=== PATIENT | male | born 1955 | race Caucasian/White ===

== ENCOUNTER 2020-02-12 18:11 | Inpatient (IN) | payer SELFPAY ==
--- NOTE | 2020-02-12 19:29 | RAD REPORT ---
EXAM DESCRIPTION: CT - Head Brain Wo Cont - 02/12/2020 7:15 pm CLINICAL HISTORY: Syncope COMPARISON: None TECHNIQUE: Computed axial tomography of the head was obtained. IV contrast was not requested. All CT scans are performed using dose optimization technique as appropriate and may include automated exposure control or mA/KV adjustment according to patient size. FINDINGS: An intracranial bleed is not seen . The ventricles are normal in caliber. No extra-axial fluid collection is noted. Mild low-density areas within periventricular, deep and subcortical white matter likely represent isc hemic changes secondary to small vessel disease. Fluid within the sinuses/ mastoids is not seen. IMPRESSION: No acute intracranial abnormality is seen. If patient's symptoms persist MRI of the bra in would be recommended.
[2020-02-12 19:44] LABS: Basophils % 0.5 % (0-1.3); Hematocrit 44.4 % (39.6-49.0); Lymphocytes % 5.7 % (15.3-44.8); MPV 7.3 fL (7.6-11.3); RBC Red Blood Cell Count 4.94 M/uL (4.33-5.43)
[2020-02-12 20:03] LABS: ALT/SGPT 22 U/L (12-78); AST/SGOT 15 U/L (15-37); Albumin 3.3 g/dL (3.4-5.0); Alkaline Phosphatase 108 U/L (45-117); BUN Blood Urea Nitrogen 28 mg/dL (7-18); Bicarbonate 32 mmol/L (21-32); Bilirubin Direct < 0.1 mg/dL (0-0.2); Bilirubin Total 0.3 mg/dL (0.2-1.0); Glucose Level 73 mg/dL (74-106); Magnesium 2.2 mg/dL (1.8-2.4); NT PRO-BNP 85 pg/mL (<125); Potassium 3.7 mmol/L (3.5-5.1); Protein, Total 6.6 g/dL (6.4-8.2); Sodium Level 142 mmol/L (136-145); Troponin (Emerg Dept Use Only) < 0.02 ng/mL (0.0-0.045)
[2020-02-12] MEDS ORDERED: NA CHLORIDE 0.9% 1,000 ML ONE ×2 (20:09→22:52)
[2020-02-12 20:10] LABS: Protime INR 1.01
[2020-02-12] MEDS ORDERED: LIDOCAINE 1% W/EPI 1:100,000 MDV 20 ML VIAL ONE (20:12)
[2020-02-12 20:56] LABS: Blood Morphology Comment NOT SEEN (NOT SEEN); Platelet Estimate ADEQ
--- NOTE | 2020-02-12 21:07 | RAD REPORT ---
EXAM DESCRIPTION: CT - Abdomen Pelvis W Contrast - 02/12/2020 8:44 pm CLINICAL HISTORY: Abdominal pain COMPARISON: none. TECHNIQUE: Computed axial tomography of the abdomen pelvis was obtained. 100 cc Isovue-300 was admin istered intravenously. Oral contrast was not requested which limits evaluation of bowel. All CT scans are performed using dose optimization technique as appropriate and may include automated exposure control or mA/KV adjustment according to patient size. FINDINGS: Evaluation is mildly limited secondary to the patient not suspending respiration during th e exam. The liver, spleen and pancreas appear unremarkable. 2.7 centimeter left and 2 centimeter right adrenal masses. Left renal calculi. The largest measures 7 millimeters. 1.9 centimeter left renal cyst. No evidence of diverticulitis. Moderate stool within the colon. The prostate gland is mildly enlarged . Small inguinal hernias. Small umbilical hernia contains fat IMPRESSION: Bilateral adrenal masses are nonspecific. Adenomas are considered most likely. Metastase s could also have this appearance. Further evaluation with MRI could be obtained Nonobstructing bilateral renal calculi
--- NOTE | 2020-02-12 22:37 | EDPHYS ---
Physician Documentation [facility] Name: Laz Al Age: 64 yrs Sex: Male : 1955 Arrival Date: 02/12/2020 Time: 18:14 Bed 16 Private MD: ED Physician Nehemias Persaud HPI: 02/11 22:46 This 64 yrs old Male presents to ER via EMS with complaints of Syncope. kb 22:46 The patient has experienced syncope, collapsed. Onset: The symptoms/episode kb began/occurred just prior to arrival. Duration: This was a single episode. Context: the episode(s) was witnessed, by no one, occurred at home, occurred while the patient was standing up from toilet. Just prior to the episode the patient experienced no apparent symptoms. Associated injury: Head/face: laceration, 3 cm(s), Right lower extremity: right knee, pain, tenderness. Associated signs and symptoms: The patient has no apparent associated signs or symptoms. Current symptoms: Currently, the patient is not experiencing any symptoms. The patient has not experienced similar symptoms in the past. The patient has not recently seen a physician. Pt reports he stood up from toilet and must have slipped in some water on the floor because he fell and cut his head. reports she went in after hearing him fall and he was trying to get up. Both deny LOC, but pt cannot recall entire event. reports that is normal for him because he has cognitive problems. Pt denies shortness of breath, cough, chest pain, dizziness, fever, headache or any other symptoms.. Historical: - Allergies: 18:17 No Known Allergies; bp - Home Meds: 18:17 tamsulosin 0.4 mg oral cp24 2 caps once daily [Active]; losartan 50 mg oral tab 1 tab bp once daily [Active]; lovastatin 20 mg Oral tab 1 tab once daily [Active]; temazepam 15 mg Oral cap 1 cap once daily [Active]; - PMHx: 18:17 Hypertension; High Cholesterol; bp - Immunization history:: Adult Immunizations up to date. - Social history:: Smoking status: Patient denies any tobacco usage or history of. ROS: 22:17 Constitutional: Negative for fever, chills, and weight loss, Cardiovascular: Negative kb for chest pain, palpitations, and edema, Respiratory: Negative for shortness of breath, cough, wheezing, and pleuritic chest pain, Abdomen/GI: Negative for abdominal pain, nausea, vomiting, diarrhea, and constipation, Back: Negative for injury and pain, Neuro: Negative for headache, weakness, numbness, tingling, and seizure. 22:17 MS/extremity: Positive for pain, of the right knee. 22:17 Skin: Positive for laceration(s), of the forehead. Exam: 22:45 Constitutional: This is a well developed, well nourished patient who is awake, alert, kb and in no acute distress. Eyes: Pupils equal round and reactive to light, extra-ocular motions intact. Lids and lashes normal. Conjunctiva and sclera are non-icteric and not injected. Cornea within normal limits. Periorbital areas with no swelling, redness, or edema. Chest/axilla: Normal chest wall appearance and motion. Nontender with no deformity. No lesions are appreciated. Cardiovascular: Regular rate and rhythm with a normal S1 and S2. No gallops, murmurs, or rubs. Normal PMI, no JVD. No pulse deficits. Respiratory: Lungs have equal breath sounds bilaterally, clear to auscultation and percussion. No rales, rhonchi or wheezes noted. No increased work of breathing, no retractions or nasal flaring. 22:45 Head/face: Noted is no obvious of injury or deformity except a laceration(s), that is superficial, 3 cm(s), of the forehead. 22:45 Abdomen/GI: Inspection: abdomen appears normal, Bowel sounds: normal, in all quadrants, Palpation: moderate abdominal tenderness, in the right lower quadrant and left lower quadrant. 22:45 Musculoskeletal/extremity: Extremities: grossly normal except: noted in the right knee: pain, tenderness, ROM: intact in all extremities, Circulation is intact in all extremities. Sensation intact. 22:45 Neuro: Exam negative for acute changes. Vital Signs: 18:14 BP 109 / 67; Pulse 81; Resp 18; Temp 98.5; Pulse Ox 100% ; bp 19:00 BP 83 / 66; Pulse 78; Resp 18; Pulse Ox 100% on R/A; aj1 19:38 BP 95 / 66; Pulse 85; Resp 18; Pulse Ox 100% on R/A; aj1 19:45 BP 91 / 59 Supine; Pulse 72; Resp 18; Pulse Ox 100% on R/A; aj1 19:47 BP 85 / 56 Sitting; Pulse 87; Resp 16; Pulse Ox 100% on R/A; aj1 19:50 BP 78 / 62; Pulse 93; Resp 20; Pulse Ox 100% on R/A; aj1 20:15 BP 87 / 63; Pulse 79; Resp 20; Pulse Ox 99% on R/A; aj1 20:53 BP 102 / 64; Pulse 76; Resp 18; Pulse Ox 100% on R/A; aj1 21:30 BP 101 / 68; Pulse 87; Resp 18; Pulse Ox 100% on R/A; aj1 22:00 BP 89 / 65; Pulse 83; Resp 18; Pulse Ox 100% on R/A; aj1 22:30 BP 95 / 81; Pulse 75; Resp 18; Pulse Ox 99% on R/A; aj1 23:00 BP 102 / 73; Pulse 86; Resp 29; Pulse Ox 99% on R/A; aj1 23:30 BP 112 / 88; Pulse 102; Resp 20; Pulse Ox 98% on R/A; aj1 02/12 00:00 BP 115 / 75; Pulse 107; Resp 18; Pulse Ox 99% on R/A; aj1 Laceration: 02/11 23:02 Wound Repair of 3cm ( 1.2in ) subcutaneous laceration to forehead. Irregularly shaped.. kb Distal neuro/vascular/tendon intact. Anesthesia: Wound infiltrated with 3 mls of 1% lidocaine w/ Epi. Wound prep: Extensive cleansing with hibiclenz by me, Wound irrigation with saline by mi. Skin closed with 5-0 fast absorbing gut using simple sutures and sterile technique. Patient tolerated well. MDM: 18:22 Patient medically screened. kb 22:17 Data reviewed: vital signs, nurses notes. Data interpreted: Pulse oximetry: on room air kb is 100 %. Interpretation: normal. Counseling: I had a detailed discussion with the patient and/or guardian regarding: the historical points, exam findings, and any diagnostic results supporting the discharge/admit diagnosis, lab results, radiology results, the need for further work-up and treatment in the hospital. 22:28 Physician consultation: Keon Ribera MD was contacted at 22:28, regarding admission, kb to the telemetry unit. patient's condition, and will see patient in inpatient room, tomorrow. 02/11 19:00 Order name: Basic Metabolic Panel; Complete Time: 20:04 kb 02/11 19:00 Order name: CBC with Diff; Complete Time: 21:03 kb 02/11 19:00 Order name: LFT's; Complete Time: 20:04 kb 02/11 19:00 Order name: Magnesium; Complete Time: 20:04 kb 02/11 19:00 Order name: NT PRO-BNP; Complete Time: 20:04 kb 02/11 19:00 Order name: PT-INR; Complete Time: 20:24 kb 02/11 19:00 Order name: Troponin (emerg Dept Use Only); Complete Time: 20:04 kb 02/11 19:00 Order name: CT Head Brain wo Cont; Complete Time: 19:32 kb 02/11 19:47 Order name: Manual Differential; Complete Time: 21:03 EDMS 02/11 23:14 Order name: COVID-19: hospitalized patient mw2 02/12 01:33 Order name: CORONAVIRUS EDMS 02/12 02:36 Order name: SARS-COV-2 RT PCR; Complete Time: 12:58 EDMS 02/12 03:45 Order name: CBC with Automated Diff; Complete Time: 12:58 EDMS 02/12 03:53 Order name: Basic Metabolic Panel; Complete Time: 12:58 EDMS 02/11 18:33 Order name: EKG; Complete Time: 18:33 bp 02/11 18:33 Order name: EKG - Nurse/Tech; Complete Time: 18:33 bp 02/11 19:00 Order name: Cardiac monitoring; Complete Time: 19:36 kb 02/11 19:00 Order name: IV Saline Lock; Complete Time: 19:36 kb 02/11 19:00 Order name: Labs collected and sent; Complete Time: 19:36 kb 02/11 19:00 Order name: O2 Per Protocol; Complete Time: 19:36 kb 02/11 19:00 Order name: O2 Sat Monitoring; Complete Time: 19:36 kb 02/11 19:00 Order name: Orthostatics; Complete Time: 19:51 kb 02/11 19:52 Order name: Prolene, Sutures; Complete Time: 20:03 kb 02/11 20:05 Order name: CT Abd/Pelvis - IV Contrast Only; Complete Time: 21:12 kb 02/11 21:26 Order name: Knee Right 3 View XRAY; Complete Time: 12:58 kb 02/11 22:27 Order name: Chest Single View XRAY; Complete Time: 12:58 kb 02/11 19:52 Order name: Dressing - Wound; Complete Time: 20:03 kb 02/11 19:52 Order name: Gloves, Sterile; Complete Time: 20:03 kb 02/11 19:52 Order name: Setup Suture Tray; Complete Time: 20:03 kb 02/11 21:15 Order name: Urine Dipstick-Ancillary (obtain specimen); Complete Time: 23:10 kb Administered Medications: 20:03 Drug: NS 0.9% 1000 ml Route: IV; Rate: 1000 ml; Site: left antecubital; [facility] 02/12 00:56 Follow up: IV Status: Completed infusion; IV Intake: 1000ml [facility] 02/11 22:00 Drug: Lidocaine-Epinephrine -1%: (1:100,000) 1 vials {Note: Administered by yumiko Cosby HOUSEHOLD APPLIANCES SERVICE TECHNICIAN.} Volume: 20 ml; Route: Infiltration; 22:50 Drug: NS 0.9% 1000 ml Route: IV; Rate: 1000 ml; Site: left antecubital; [facility] 02/12 00:56 Follow up: IV Status: Completed infusion; IV Intake: 1000ml [facility] 01:10 Drug: Ativan 1 mg Route: IVP; Site: left antecubital; dm5 Disposition: 02/12/20 22:36 Hospitalization ordered by Keon Ribera for Observation. Preliminary diagnosis are Syncope and collapse, Orthostatic hypotension, Elevated white blood cell count, Laceration without foreign body of scalp, Superficial injury of head. - Bed requested for Telemetry/MedSurg (observation). - Status is Observation. ss - Condition is Stable. - Problem is new. - Symptoms are unchanged. Addendum: 02/17/2020 09:35 Co-signature as Attending Physician, Nehemias Persaud MD. r n Signatures: Dispatcher [employer] EDBeth Harry FNP-C FNP-Yessica Noriega Angela, RN RN aj1 Markwardt, Deana RN RN dm5 Nehemias Persaud MD MD rn Smirch, Shelby, RN RN ss Sudhakar Mendoza RN RN bp Elvira Crespo MD MD ma2 Corrections: (The following items were deleted from the chart) 02/11 22:49 22:46 Pt reports he stood up from toilet and must have slipped in some water on the kb floor because he fell and cut his head. reports she went in after hearing him fall and he was trying to get up. Both deny LOC, but pt cannot recall entire event. reports that is normal for him because he has cognitive problems. . kb 23:19 22:36 Hospitalization Ordered by Keon Ribera MD for Observation. Preliminary dm5 diagnosis is Syncope and collapse; Orthostatic hypotension; Elevated white blood cell count; Laceration without foreign body of scalp; Superficial injury of head. Bed requested for Telemetry/MedSurg (observation). Status is Observation. Condition is Stable. Problem is new. Symptoms are unchanged. kb 02/12 14:13 02/11 23:19 02/12/2020 22:36 Hospitalization Ordered by Keon Ribera MD for bd Observation. Preliminary diagnosis is Syncope and collapse; Orthostatic hypotension; Elevated white blood cell count; Laceration without foreign body of scalp; Superficial injury of head. Bed requested for [facility] ER HOLD. Status is Observation. Condition is Stable. Problem is new. Symptoms are unchanged. dm5 02/12 14:55 14:13 02/12/2020 22:36 Hospitalization Ordered by Keon Ribera MD for Observation. ss Preliminary diagnosis is Syncope and collapse; Orthostatic hypotension; Elevated white blood cell count; Laceration without foreign body of scalp; Superficial injury of head. Bed requested for Telemetry/MedSurg (observation). Status is Observation. Condition is Stable. Problem is new. Symptoms are unchanged. bd
--- NOTE | 2020-02-12 22:37 | ER ---
Nurse's Notes [facility] Name: Laz Al Age: 64 yrs Sex: Male : 1955 Arrival Date: 02/12/2020 Time: 18:14 Bed 16 Private MD: Diagnosis: Syncope and collapse;Orthostatic hypotension;Elevated white blood cell count;Laceration without foreign body of scalp;Superficial injury of head Presentation: 02/11 18:14 Chief complaint: EMS states: SYNCOPAL FALL AT HOME. Coronavirus screen: At this time, bp the client does not indicate any symptoms associated with coronavirus-19. Ebola Screen: No symptoms or risks identified at this time. Initial Sepsis Screen: Does the patient meet any 2 criteria? No. Patient's initial sepsis screen is negative. Does the patient have a suspected source of infection? No. Patient's initial sepsis screen is negative. Risk Assessment: Do you want to hurt yourself or someone else? Patient reports no desire to harm self or others. Onset of symptoms is unknown. Care prior to arrival: Glucose check: 74. 18:14 Method Of Arrival: EMS: [facility] bp 18:14 Acuity: RIGOBERTO 3 bp Triage Assessment: 18:17 General: Appears in no apparent distress. comfortable, Behavior is calm, cooperative, bp appropriate for age. Pain: Complains of pain in forehead. EENT: No deficits noted. Neuro: Level of Consciousness is awake, alert, obeys commands, Oriented to person, place, time, situation, Appropriate for age Reports a syncopal episode. Cardiovascular: Rhythm is sinus rhythm. Respiratory: No deficits noted. GI: No signs and/or symptoms were reported involving the gastrointestinal system. : No signs and/or symptoms were reported regarding the genitourinary system. Derm: No deficits noted. Musculoskeletal: No deficits noted. Historical: - Allergies: 18:17 No Known Allergies; bp - Home Meds: 18:17 tamsulosin 0.4 mg oral cp24 2 caps once daily [Active]; losartan 50 mg oral tab 1 tab bp once daily [Active]; lovastatin 20 mg Oral tab 1 tab once daily [Active]; temazepam 15 mg Oral cap 1 cap once daily [Active]; - PMHx: 18:17 Hypertension; High Cholesterol; bp - Immunization history:: Adult Immunizations up to date. - Social history:: Smoking status: Patient denies any tobacco usage or history of. Screenin:18 Abuse screen: Denies threats or abuse. Denies injuries from another. Nutritional bp screening: No deficits noted. Tuberculosis screening: No symptoms or risk factors identified. Fall Risk Fall in past 12 months (25 points). No secondary diagnosis (0 pts). No IV (0 pts). Ambulatory Aid- None/Bed Rest/Nurse Assist (0 pts). Gait- Normal/Bed Rest/Wheelchair (0 pts) Mental Status- Oriented to own ability (0 pts). Total Lovelace Fall Scale indicates Low Risk Score (25-44 pts). Fall prevention measures have been instituted. Side Rails Up X 2 Placed close to Nursing Station Frequent Obs/Assesments occuring As available Patient and Family Educated on Fall Prevention Program and strategies. Assessment: 18:18 General: SEE TRIAGE NOTE. Neuro: Level of Consciousness is awake, alert, obeys bp commands, Oriented to Appropriate for age. Cardiovascular: Rhythm is sinus rhythm. 19:15 General: Appears in no apparent distress. comfortable, Behavior is calm, cooperative, aj1 appropriate for age. Pain: Complains of pain in forehead Pain does not radiate. Pain currently is 5 out of 10 on a pain scale. Neuro: Level of Consciousness is awake, alert, obeys commands, Oriented to person, place, time, situation, Project Coordinator Rn are equal bilaterally Moves all extremities. Full function Speech is normal, Facial symmetry appears normal, Reports a syncopal episode Denies dizziness. Cardiovascular: Reports syncope, Denies chest pain, palpitations, shortness of breath, Heart tones S1 S2 present Patient's skin is warm and dry. Rhythm is sinus rhythm. Respiratory: Airway is patent Respiratory effort is even, unlabored, Respiratory pattern is regular, symmetrical. GI: No signs and/or symptoms were reported involving the gastrointestinal system. : No signs and/or symptoms were reported regarding the genitourinary system. EENT: No signs and/or symptoms were reported regarding the EENT system. Derm: No signs and/or symptoms reported regarding the dermatologic system. Skin is pink, warm \T\ dry. normal. Musculoskeletal: No signs and/or symptoms reported regarding the musculoskeletal system. Circulation, motion, and sensation intact. 19:37 Reassessment: Spoke with Cici Jim NP regarding pt blood pressure in the 80's and aj1 order for orthostatic vital signs. Order received to continue with orthostatics and stop if patient begins to complain of dizziness. 20:15 Reassessment: Patient appears in no apparent distress at this time. No changes from aj1 previously documented assessment. Patient and/or family updated on plan of care and expected duration. Pain level reassessed. Patient is alert, oriented x 3, equal unlabored respirations, skin warm/dry/pink. 21:20 Reassessment: Patient and/or family updated on plan of care and expected duration. Pain aj1 level reassessed. General: Appears in no apparent distress. comfortable, Behavior is calm, cooperative, appropriate for age. Pain: Complains of pain in forehead. Neuro: Level of Consciousness is awake, alert, obeys commands, Oriented to person, place, time, situation, Moves all extremities. Full function Speech is normal, Facial symmetry appears normal. Cardiovascular: Patient's skin is warm and dry. Rhythm is sinus rhythm. Respiratory: Airway is patent Respiratory effort is even, unlabored, Respiratory pattern is regular, symmetrical. Derm: Skin is pink, warm \T\ dry. normal. Musculoskeletal: Circulation, motion, and sensation intact. 22:15 Reassessment: Patient appears in no apparent distress at this time. No changes from aj1 previously documented assessment. Patient and/or family updated on plan of care and expected duration. Pain level reassessed. Patient is alert, oriented x 3, equal unlabored respirations, skin warm/dry/pink. 23:22 Reassessment: Patient and/or family updated on plan of care and expected duration. Pain aj1 level reassessed. General: Appears in no apparent distress. comfortable, Behavior is calm, cooperative, appropriate for age. Pain: Complains of pain in forehead. Neuro: Level of Consciousness is awake, alert, obeys commands, Oriented to person, place, time, situation, Speech is normal, Facial symmetry appears normal. Cardiovascular: Patient's skin is warm and dry. Rhythm is sinus rhythm. Respiratory: Airway is patent Respiratory effort is even, unlabored, Respiratory pattern is regular, symmetrical. Derm: Skin is pink, warm \T\ dry. normal. Musculoskeletal: Circulation, motion, and sensation intact. 02/12 00:30 Reassessment: Patient appears in no apparent distress at this time. No changes from aj1 previously documented assessment. Patient and/or family updated on plan of care and expected duration. Pain level reassessed. Patient is alert, oriented x 3, equal unlabored respirations, skin warm/dry/pink. 00:55 Reassessment: Patient changed to ER HOLD status, charting will continue in [facility] Vital Signs: 02/11 18:14 BP 109 / 67; Pulse 81; Resp 18; Temp 98.5; Pulse Ox 100% ; bp 19:00 BP 83 / 66; Pulse 78; Resp 18; Pulse Ox 100% on R/A; aj1 19:38 BP 95 / 66; Pulse 85; Resp 18; Pulse Ox 100% on R/A; aj1 19:45 BP 91 / 59 Supine; Pulse 72; Resp 18; Pulse Ox 100% on R/A; aj1 19:47 BP 85 / 56 Sitting; Pulse 87; Resp 16; Pulse Ox 100% on R/A; aj1 19:50 BP 78 / 62; Pulse 93; Resp 20; Pulse Ox 100% on R/A; aj1 20:15 BP 87 / 63; Pulse 79; Resp 20; Pulse Ox 99% on R/A; aj1 20:53 BP 102 / 64; Pulse 76; Resp 18; Pulse Ox 100% on R/A; aj1 21:30 BP 101 / 68; Pulse 87; Resp 18; Pulse Ox 100% on R/A; aj1 22:00 BP 89 / 65; Pulse 83; Resp 18; Pulse Ox 100% on R/A; aj1 22:30 BP 95 / 81; Pulse 75; Resp 18; Pulse Ox 99% on R/A; aj1 23:00 BP 102 / 73; Pulse 86; Resp 29; Pulse Ox 99% on R/A; aj1 23:30 BP 112 / 88; Pulse 102; Resp 20; Pulse Ox 98% on R/A; aj1 02/12 00:00 BP 115 / 75; Pulse 107; Resp 18; Pulse Ox 99% on R/A; aj1 ED Course: 02/11 18:14 Patient arrived in ED. bp 18:15 Triage completed. bp 18:17 Arm band placed on. bp 18:18 Patient has correct armband on for positive identification. Bed in low position. Call bp light in reach. Side rails up X2. 18:20 Sudhakar Mendoza, RN is Primary Nurse. bp 18:22 Beth Jim, ROSE-C is PHCP. kb 18:22 Nehemias Persaud MD is Attending Physician. kb 19:03 Primary Nurse role handed off by Sudhakar Mendoza, JACKY mw2 19:15 No provider procedures requiring assistance completed. aj1 19:16 CT Head Brain wo Cont In Process Unspecified. EDMS 19:36 Jacquie Hall, JACKY is Primary Nurse. aj1 19:37 Inserted saline lock: 20 gauge in left antecubital area, using aseptic technique. Blood aj1 collected. 20:44 CT Abd/Pelvis - IV Contrast Only In Process Unspecified. EDMS 22:07 Knee Right 3 View XRAY In Process Unspecified. EDMS 22:30 Urine collected: clean catch specimen, clear, tony colored. jp3 22:35 Keon Ribera MD is Hospitalizing Provider. kb 22:54 Chest Single View XRAY In Process Unspecified. EDMS 02/12 00:55 Report given to JACKY Aguilera. aj1 00:55 Patient admitted, IV remains in place. aj1 Administered Medications: 02/11 20:03 Drug: NS 0.9% 1000 ml Route: IV; Rate: 1000 ml; Site: left antecubital; aj1 02/12 00:56 Follow up: IV Status: Completed infusion; IV Intake: 1000ml aj1 02/11 22:00 Drug: Lidocaine-Epinephrine -1%: (1:100,000) 1 vials {Note: Administered by yumiko Cosby COMMERCIAL DRIVER.} Volume: 20 ml; Route: Infiltration; 22:50 Drug: NS 0.9% 1000 ml Route: IV; Rate: 1000 ml; Site: left antecubital; aj1 02/12 00:56 Follow up: IV Status: Completed infusion; IV Intake: 1000ml aj1 01:10 Drug: Ativan 1 mg Route: IVP; Site: left antecubital; dm5 Intake: 00:56 IV: 1000ml; Total: 1000ml. aj1 00:56 IV: 1000ml; Total: 2000ml. aj1 Outcome: 02/11 22:36 Decision to Hospitalize by Provider. kb 02/12 00:55 Admitted to Med/surg aj1 Condition: stable Discharge instructions given to patient, family, Instructed on the need for admit, Demonstrated understanding of instructions. 14:55 Patient left the ED. ss Signatures: Dispatcher [employer] EDMS Beth Jim, GUIDANCE DIRECTOR-C GUIDANCE DIRECTOR-Jacquie Kelsey, RN RN aj1 Haritha Mcdaniels RN RN dm5 Nyla Dias RN RN ss Sudhakar Mendoza RN RN Cedric Peacock 2 Froylan Nelson 3
[2020-02-13] MEDS: NA CHLORIDE 0.9% 1,000 ML IV SCH ×2 (00:14→09:53)
[2020-02-13] MEDS ORDERED: ACETAMINOPHEN 500 MG TAB PO PRN (00:14)
[2020-02-13] MEDS ORDERED: NA CHLORIDE 0.9% 1,000 ML ONE ×2 (00:33→08:30)
[2020-02-13] MEDS ORDERED: LORazepam 2 MG/ML VIAL ONE ×3 (01:06→13:11)
[2020-02-13 03:42] LABS: Absolute Lymphocytes (CBC) 1.5 K/uL (0.7-4.9); Basophils % 0.2 % (0-1.3); Hematocrit 41.6 % (39.6-49.0); MPV 7.5 fL (7.6-11.3); RBC Red Blood Cell Count 4.69 M/uL (4.33-5.43)
[2020-02-13 03:53] LABS: BUN Blood Urea Nitrogen 25 mg/dL (7-18); Bicarbonate 30 mmol/L (21-32); Glucose Level 115 mg/dL (74-106); Potassium 3.7 mmol/L (3.5-5.1); Sodium Level 144 mmol/L (136-145)
[2020-02-13 05:19] VITALS: BMI 22.0
--- NOTE | 2020-02-13 07:24 | RAD REPORT ---
EXAM DESCRIPTION: [place] Single View02/12/2020 10:54 pm CLINICAL HISTORY: Leukocytosis COMPARISON: none FINDINGS: The lungs appear clear of acute infiltrate. The heart is normal size IMPRESSION: No acute abnormalities displayed
--- NOTE | 2020-02-13 07:26 | RAD REPORT ---
EXAM DESCRIPTION: RAD - Knee Right 3 View - 02/12/2020 10:06 pm CLINICAL HISTORY: Right knee pain status post injury FINDINGS: No fracture or dislocation is seen. Moderate to marked osteoarthritis involves the knee consisting joint space narrowing and osteophytes. The bones are osteoporotic If patient continues have symptoms to suggest an occult fracture, ligamentous or meniscal injury MRI would be recommended
[2020-02-13] MEDS ORDERED: LORazepam 2 MG/ML VIAL IV PRN (11:36)
[2020-02-13] MEDS ORDERED: LORazepam 2 MG/ML VIAL IV ONE (12:53)
[2020-02-13] MEDS ORDERED: TEMAZEPAM 15 MG CAP PO PRN (14:20)
[2020-02-13] MEDS ORDERED: DIAZEPAM 10 MG/2 ML INJ SYRINGE IV PRN ×2 (15:31→18:31)
[2020-02-13] MEDS ORDERED: NA CHLORIDE 0.9% 1,000 ML IV SCH ×3 (15:33→16:00)
--- NOTE | 2020-02-13 20:19 | HP ---
Date of Admission: 02/13/2020 Entrance Complaint: Fainting episode. History Of The Present Illness: Informant is the . She states she was at home during the day an d he seem his usual self and then she heard a noise in the bathroom. She went in, he was on the floo r, apparently had a bowel movement and had slipped, had a fall and struck his front part of his foreh ead and his knee. The former required some stitches, latter showed some edema. However, at that melissa e she felt he was orientated. She could not get him up because he was so weak, was brought to the [facility] ([place], [place])ency room where the diagnosis of postural hypotension was made. The patient is on blood pressure m edicine and Flomax, and this possibility has to be considered most likely. In any event, he apparent ly is orientated to time in the emergency room, although his memory status was poor at best. The pat vanna has had progressive memory loss over the past few years, has become significantly worse over the past few months, and attempt has been made to refer him to [facility] for neurological evaluation, but thi s has not come to fruition. The patient has a history of hypertension, relatively good control on me dication according to her . She knows we check his blood pressure a couple of times a week and h as been normal. He has a history of hyperlipidemia, also on medication and some urgency, which has be en treated with Flomax, a couple of months ago the dose was increased as he was still symptomatic and according to her again, that did not help much as of late. Probability of postural hypotension is s econdary to the combination of the FREYA and the Flomax as most likely etiology. Past History: As above. Family History: Noncontributory. Social History: Nonsmoker. Nondrinker. Physical Examination: General: The patient is a thin elderly male without marked hypotension. Head and Neck: Normocephalic. Pupils equal and reactive to light and accommodation. Laceration acr oss the lower part of his forehead. ENT: Negative. Chest: Clear to P and A. Cardiovascular: PMI in the midclavicular line. Heart: Sounds normal. Peripheral pulses present and equal bilaterally. Abdomen: No organomegaly. Bowel sounds present. Extremities: Normal except for the right knee, which shows some edema and decreased motion. Rectal: Deferred. Impression: Vasovagal syncope secondary to postural hypotension secondary to medications, contusion of knee, laceration of forehead. Plan: The patient will be admitted, placed on IV fluids, monitored, and the medication will be adjus aubree accordingly. It was noted that his white blood count was 18,000 on admission. No obvious etiolo gy. We will continue to monitor as well. HR/MODL Voice ID: [id number]
--- NOTE | 2020-02-13 20:19 | PN ---
Date of Progress Note: 02/13/2020 The patient has had a sequence of agitation trying to climb out of bed, becoming somewhat physical wh en down in the ER hold. He was sedated with Ativan, which produced minimal response. He was transfe rred to floor care and given Valium IV. This produced required sedation, but also according to his w alejandro who is the informant for most of this information, quite confused compared to his normal status. She states the patient has had progressive memory deficit over the past year and I could not confirm this. However, she states he is functionable. When seen early this evening, the patient was respon sive, but not orientated to place and she said that he is turning to be more responsive than he was a fter the Valium. He listens to commands and I feel that he needs to remain overnight to see Neurolog y and in fact, the latter has ordered a repeat CT scan, which I think would be of some benefit. Moreno george, as far as the sedation is concerned, the dose will be decreased to 2 mg if necessary and dependi ng on the response, we will adjust accordingly. His white count dropped from 18,000 to 15,000. Gladis denise of his physical exam does show some edema of the right knee with decreased motion at the joint. X-ray was negative, suspected this was a contusion only. We will have physical therapy evaluate in a.m. and repeat the white count. The patient's says he was too sedated to try drinking and eat ing, but this will be attempted this evening. I suspect the sedation and somewhat disorientation is secondary to the medication and she states in the past he has had a somewhat similar reaction to Ambi en, that is why switched him to temazepam. However, the trauma which is presumably secondary to post ural hypotension may in fact have played some part in overall scenario as well. HR/MODL Voice ID: [id number] Report ID: [id number]
--- NOTE | 2020-02-13 21:20 | RAD REPORT ---
EXAM DESCRIPTION: MRI - Brain Wo Cont - 02/13/2020 9:04 pm CLINICAL HISTORY: confusion, transient alteration of awareness COMPARISON: Head Brain Wo Cont dated 02/12/2020 TECHNIQUE: Sagittal T1-weighted images were obtained along with axial PD, heavily T2-weighted and T2 -FLAIR images. Axial DWI and ADC mapping sequences were also obtained along with coronal heavily T2-w eighted images. FINDINGS: Exam has substantial motion degradation affects across multiple image acquisitions. No acute infarction changes identified. No hemorrhage, mass, edema or midline shift. Atrophy changes are present. Ventricles are in proportion to the volume loss. Chronic ischemic changes are minimal. N o extra-axial fluid collections. Leija-matter/white matter junction is preserved. Signal voids are see n as a normal finding in the major intracranial vessels. No globe or orbital content acute finding. No sella or supra sella abnormality seen. Mastoid air cells and paranasal sinuses are clear. IMPRESSION: No acute infarction. No acute intracranial finding seen. Atrophy and chronic ischemic changes are present. These are relatively mild. Exam has significant motion degradation limitation. Exam is still considered diagnostic for evaluatio n of significant intracranial processes.
[2020-02-14 04:09] LABS: Absolute Lymphocytes (CBC) 1.7 K/uL (0.7-4.9); Basophils % 0.8 % (0-1.3); Hematocrit 42.5 % (39.6-49.0); Lymphocytes % 13.6 % (15.3-44.8); MPV 7.6 fL (7.6-11.3); RBC Red Blood Cell Count 4.76 M/uL (4.33-5.43)
[2020-02-14 04:31] LABS: BUN Blood Urea Nitrogen 17 mg/dL (7-18); Bicarbonate 28 mmol/L (21-32); Glucose Level 87 mg/dL (74-106); Potassium 3.6 mmol/L (3.5-5.1); Sodium Level 141 mmol/L (136-145)
--- NOTE | 2020-02-14 06:10 | EKG ---
Test Date: 2020-02-12 Test Time: 18:25:34 House[employer] Appliances Service Technician: BP MEASUREMENT RESULTS: Intervals: Rate: 88 MT: 128 QRSD: 86 QT: 394 QTc: 476 [place]: P: 56 MT: 128 QRS: 20 T: 46 INTERPRETIVE STATEMENTS: Sinus rhythm with frequent premature ventricular complexes in a pattern of bigeminy Possible Left atrial enlargement Septal infarct, age undetermined Abnormal ECG Compared to ECG 08/19/2000 14:36:00 Ventricular premature complex(es) now present Myocardial infarct finding now present Sinus tachycardia no longer present Electronically Signed On 02-14-20 06:09:14 [employer] CUTTER FINISHER by Christiano Mahmood
[2020-02-14 10:38] VITALS: O2SAT 99
[2020-02-14 12:39] VITALS: BP 116/81; TEMP 98.8
--- NOTE | 2020-02-14 21:00 | PN ---
Date of Progress Note: 02/14/2020 Subjective: The patient seems much better today both clinically and he is functioning somewhat haile r with the help of therapy. He does require some assistance and this patient is not still capable. I do not feel of understanding all the implications. It was reiterated with his that she needs to be present at all times and she says she is going to be off work for the next 4 days, and at that time, some progress would be made so that he can stay by himself or they can have to find another met hod of taking care of him. His knee is much improved. He can weightbear. His mental status still h as significant memory deficit, other signs of dementia, but he did recall my name. His white count h as dropped down to 12.8. His blood pressure is still stable without medication. He was therefore in structed not to take his blood pressure pill and/or the Flomax, take the sleeping pill as necessary, and to continue on his cholesterol medicine. A telemedicine conference would be held with both of [facility] on Wednesday. Still awaiting the EEG. Possibility of some type of seizure disorder was also considered, especially in view of the fact that basically the MRI and CT did not give any specific d iagnosis to call a syncope episode still and possibility of postural hypertension is most likely. HR/MODL Voice ID: [id number] Report ID: [id number]
--- NOTE | 2020-02-14 22:30 | CON ---
Reason For Consultation: Consultation called by Dr. Ribera because the patient had a syncopal episo de. History Of Present Illness: Mr. Al is a 64-year-old right-handed patient, but per his wi fe's history of memory loss of several years, who was at home on the toilet when she heard a noise an d investigated and found he had passed out and hit his forehead on a nearby structure and bruised his both knees. Patient does not have a recollection of the episode and had several stitches required i n the mid forehead above the eyes. The knees did not require any more intervention and no fractures were seen in his trauma series. He was given IV fluids. His blood work initially identified 18,000 count of white blood cells with 87.6% of neutrophils; however, the workup for infection, which includ ed chest x-ray, abdomen and pelvis CT scan showed no infectious findings, however. 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 His head CT scan and brain MRI did not revea l any acute ischemic or hemorrhagic changes. The MRI, however, did show atrophy and chronic small ve ssel ischemic disease. An EEG was being done at the time of my evaluation. There is blood work also, basic metabolic panel showing glucose elevated only to 115 with normal liver function studies and normal creatinine, normal magnesium and glucose. After receiving hydration, the patient is able to ambulate with the physical therapist at least 150 f eet with a rolling walker. Patient's said she is his primary caregiver. He is adopted and has no children, has older siblings, but not that he is in regular contact with. Past Medical History: As indicated. Allergies: NO KNOWN DRUG ALLERGIES. Family History: No dementia in his siblings. Has an adopted father. Social History: No significant alcohol, tobacco, or IV drug use. Patient resides at home. His works. Review of Systems: His notes he has had progressive memory loss as long as she has known him, which is around 20 ye ars, and Dr. Ribera has been seeing patient at least 20 years and he says prior to about a year ago, patient had no issues with cognitive functioning, no gait abnormalities, as well. Otherwise negativ e on a 10-point systems review. Physical Examination: Vital Signs: Blood pressure 116/81, pulse 97, respiratory rate 16, temperature 98.8, oxygen saturati on 99% on room air. Weight 176 pounds. Height 6 feet 3 inches, BMI 22. General: Mr. Al is sitting in a chair beside his bed. He is in no acute distress. He does have a bandage in the middle of his forehead, which covered several stitches, otherwise atraumatic and norm ocephalic. General exam is otherwise unremarkable. Neck: Supple. Chest: Clear. Heart: Regular. Extremities: Does have bruises on the anterior portions of knees. No bruises on the hands. Neurological: He is alert and oriented to situation and place; however, when asked to describe what happen as indicated, the patient had no memory. He thought he was in HD when he fell. Cranial nerve s show no focal deficits 2 through 12. Motor exam showed mild diffuse weakness in the lower extremit y, intact in upper extremity in a stocking-glove loss, light touch, temperature, depressed reflexes i n the upper and lower extremities. He was able to ambulate with physical therapist with minimum assi stance and supervision. Assessment: Mr. Al is a 64-year-old patient with possible syncopal episode related to neurogenic e tiology. He should also be worked up for cardiac etiology. Plan: 1.He may benefit from ambulatory video EEG monitoring after discharge. 2.The EEG will be reviewed. 3.Patient is to maintain blood pressure diary at home. 4.Should hydrate with 6-8 glasses of water daily. 5.He may be admitted to [facility] as clinically has no insurance for further workup of possible seizures. 6.He should maintain an event diary along with help of his . 7.After discharge, he may follow up with Dr. Rodriguez in clinic 1 month later. FRANK/ALLEGRA Voice ID: [id number] Report ID: [id number]
--- NOTE | 2020-02-16 07:53 | EEG ---
CHART: [id number] TEST ID#: [id number] DATE OF STUDY: 02/14/2020 THE EEG WAS RECORDED [place] IN THE PATIENT'S ROOM ON A 17 CHANNEL MACHINE. ELECTRODES WERE APPLIED IN THE USUAL MANNER USING THE INTERNATIONAL 10-20 SYSTEM. THE WAKING BACKGROUND RHYTHM IN THIS RECORD CONSISTS OF FAIRLY WELL DEVELOPED AND FAIRLY WELL ORGANIZED WAVES OF 8.5 HZ., MAXIMAL IN THE POSTERIOR HEAD REGIONS WHICH ATTENUATE NORMALLY WITH EYE OPENING. LOW-VOLTAGE 18-22 HZ ACTIVITY IS EXPRESSED IN THE FRONTAL REGION. MODERATE VOLTAGE 4-6 HZ ACTIIVTY IS EXPRESSED IN THE FRONTAL AND CENTRAL REGIONS. THERE ARE NO FOCAL OR LATERALIZING FEATURES. NO EPILEPTIFORM ACTIVITY APPEARS. SLEEP OCCURRED NATURALLY. IN ADDITION NORMAL SLEEP PATTERNS ARE PRESENT. HYPERVENTILATION WAS NOT PERFORMED. PHOTIC STIMULATION PRODUCED FAIR DRIVING BILATERALLY. IMPRESSION: THIS IS A MILDLY ABNORMAL ELECTROENCEPHALOGRAM DUE TO A MILDLY SLOW BACKGROUND. THIS IS A NON-SPECIFIC FINDING INDICATING THE PRESENCE OF A MILD DIFFUSE DISTURBANCE IN CEREBRAL ACTIVITY.
== END 2020-02-14 18:07 | disposition home or self-care (01) | DRG 312 ==
LOC: ER 18:11 → INTOOBSV 23:13 → ERHOLD 23:13 → OBSVTOIN 23:13 → 2ND 02-13 14:38
PROVIDERS: ADMIT Family Medicine; ATTEND Family Medicine
DX: I95.2 Hypotension due to drugs (principal); I10 Essential (primary) hypertension; D72.829 Elevated white blood cell count, unspecified; T44.6X5A Adverse effect of alpha-adrenoreceptor antagonists, initial encounter; S01.01XA Laceration without foreign body of scalp, initial encounter; S80.00XA Contusion of unspecified knee, initial encounter; W18.11XA Fall from or off toilet without subsequent striking against object, initial encounter; Y92.091 Bathroom in other non-institutional residence as the place of occurrence of the external cause; Z79.899 Other long term (current) drug therapy; Z20.828 Contact with and (suspected) exposure to other viral communicable diseases
CPT/HCPCS: 36415; 70450; 70551; 71045; 74177; 80048; 80076; 83735; 83880; 84484; 85025; 85610; 93005; 95819; 96361; 96374; 97112; 97116; 97161; 97530; 99285; G0378; J3360; J7030; Q9967; U0003

== ENCOUNTER 2020-03-12 | Emergency (ER) | payer SELFPAY ==
--- NOTE | 2020-03-12 14:50 | EDPHYS ---
Physician Documentation [facility] Name: Laz Al Age: 64 yrs Sex: Male : 1955 Arrival Date: 03/12/2020 Time: 14:29 Bed 23 Private MD: Keon Ribera ED Physician Nehemias Persaud HPI: 03/12 14:42 This 64 yrs old Male presents to ER via Ambulatory with complaints of Knee rn Pain. 14:42 The patient presents with pain. The complaints affect the right knee. Onset: The rn symptoms/episode began/occurred 3 week(s) ago. Modifying factors: The symptoms are alleviated by nothing. the symptoms are aggravated by weight bearing, bending knee. Associated signs and symptoms: Pertinent negatives calf tenderness, fever, warmth, weakness. Severity of symptoms: At their worst the symptoms were mild, in the emergency department the symptoms are unchanged. The patient has not experienced similar symptoms in the past. The patient has been recently seen at the [facility] Emergency Department. Reports fall 3 weeks ago, right knee injured at that time, was much more swollen and painful at that time, xrays negative for fracture, swelling has decreased as well as pain improved, but still hurting at times. No fever. Does not feel ill. No hx of joint disease or infection. No new injury.. Historical: - Allergies: 14:37 BENZODIAZEPINES; ll1 - PMHx: 14:37 High Cholesterol; Hypertension; ll1 - PSHx: 14:37 B knee, B foot sx; ll1 - Immunization history:: Flu vaccine is not up to date. - Social history:: Smoking status: Patient reports the use of cigarette tobacco products, smokes one-half pack cigarettes per day. - Family history:: not pertinent. - Hospitalizations: : No recent hospitalization is reported. ROS: 14:42 Constitutional: Negative for fever, chills, and weight loss, MS/Extremity: Negative for rn deformity. Exam: 14:42 Constitutional: This is a well developed, well nourished patient who is awake, alert, rn and in no acute distress. Ambulatory to room without difficulty. Skin: Warm, dry, no lesions, and no evidence of cellulitis. MS/ Extremity: Pulses equal, no cyanosis. Neurovascular intact. Full, normal range of motion. Equal circumference. No appreciable effusion or crepitus. Vital Signs: 14:35 BP 131 / 93; Pulse 89; Resp 17; Temp 97.8; Pulse Ox 100% ; Weight 79.38 kg; Height 6 ll1 ft. 0 in. (182.88 cm); Pain 8/10; 14:35 Body Mass Index 23.73 (79.38 kg, 182.88 cm) ll1 MDM: 14:32 Patient medically screened. rn 14:42 Differential diagnosis: tendonitis, arthritis, internal derangement of right knee. Data rn reviewed: vital signs, nurses notes, radiologic studies, plain films, and as a result, I will discharge patient. Data reviewed: old medical records. Counseling: I had a detailed discussion with the patient and/or guardian regarding: the historical points, exam findings, and any diagnostic results supporting the discharge/admit diagnosis, radiology results, the need for outpatient follow up, to return to the emergency department if symptoms worsen or persist or if there are any questions or concerns that arise at home. Special discussion: I discussed with the patient/guardian in detail that at this point there is no indication for admission to the hospital. It is understood, however, that if the symptoms persist or worsen the patient needs to return immediately for re-evaluation. Further emergent ED testing is not indicated at this point in time. I discussed with the patient/guardian in detail the need to arrange with the PCP or specialist further outpatient testing, MRI. 14:47 ED course: recommend outpt MRI, and knee brace.. rn Administered Medications: No medications were administered Disposition: 03/12/20 14:47 Discharged to Home. Impression: Osteoarthritis of knee, Other internal derangements of right knee. - Condition is Stable. - Discharge Instructions: Arthritis, Knee Pain. - Medication Reconciliation Form, Thank You Letter, Antibiotic Education, Prescription Opioid Use form. - Follow up: Private Physician; When: As needed; Reason: Recheck today's complaints, Re-evaluation by your physician. - Problem is an ongoing problem. - Symptoms have improved. Signatures: Nehemias Persaud MD MD rn Garcia, JACKY Hutchison RN vg1 Evelyn Chapman RN RN ll1 Corrections: (The following items were deleted from the chart) 14:58 14:47 03/12/2020 14:47 Discharged to Home. Impression: Osteoarthritis of knee; Other vg1 internal derangements of right knee. Condition is Stable. Forms are Medication Reconciliation Form, Thank You Letter, Antibiotic Education, Prescription Opioid Use. Follow up: Private Physician; When: As needed; Reason: Recheck today's complaints, Re-evaluation by your physician. Problem is an ongoing problem. Symptoms have improved. rn
--- NOTE | 2020-03-12 14:50 | ER ---
Nurse's Notes [facility] Name: Laz Al Age: 64 yrs Sex: Male : 1955 Arrival Date: 03/12/2020 Time: 14:29 Bed 23 Private MD: Keon Ribera Diagnosis: Osteoarthritis of knee;Other internal derangements of right knee Presentation: 03/12 14:35 Chief complaint: Patient states: R knee pain and swelling continues since fall 3 weeks ll1 ago. Coronavirus screen: Client denies travel out of the [place] in the last 14 days. At this time, the client does not indicate any symptoms associated with coronavirus-19. Ebola Screen: Patient denies travel to an Ebola-affected area in the 21 days before illness onset. Initial Sepsis Screen: Does the patient meet any 2 criteria? No. Patient's initial sepsis screen is negative. Does the patient have a suspected source of infection? Yes: Bone or joint infection. Risk Assessment: Do you want to hurt yourself or someone else? Patient reports no desire to harm self or others. Onset of symptoms was February 20, 2020. 14:35 Method Of Arrival: Ambulatory ll1 14:35 Acuity: RIGOBERTO 4 ll1 Historical: - Allergies: 14:37 BENZODIAZEPINES; ll1 - PMHx: 14:37 High Cholesterol; Hypertension; ll1 - PSHx: 14:37 B knee, B foot sx; ll1 - Immunization history:: Flu vaccine is not up to date. - Social history:: Smoking status: Patient reports the use of cigarette tobacco products, smokes one-half pack cigarettes per day. - Family history:: not pertinent. - Hospitalizations: : No recent hospitalization is reported. Screenin:53 Abuse screen: Denies threats or abuse. Nutritional screening: No deficits noted. vg1 Tuberculosis screening: No symptoms or risk factors identified. Fall Risk Fall in past 12 months (25 points). No secondary diagnosis (0 pts). No IV (0 pts). Ambulatory Aid- None/Bed Rest/Nurse Assist (0 pts). Gait- Normal/Bed Rest/Wheelchair (0 pts) Mental Status- Oriented to own ability (0 pts). Total Lovelace Fall Scale indicates Low Risk Score (25-44 pts). Fall prevention measures have been instituted. Assessment: 14:51 General: Appears in no apparent distress. Behavior is calm, cooperative. Pain: vg1 Complains of pain in right knee Pain currently is 8 out of 10 on a pain scale. Pain began three weeks ago. Aggravated by weight bearing. Neuro: Level of Consciousness is awake, alert, obeys commands, Oriented to person, place, time, situation. Cardiovascular: Patient's skin is warm and dry. Respiratory: Airway is patent Respiratory effort is even, unlabored, Respiratory pattern is regular, symmetrical. GI: No signs and/or symptoms were reported involving the gastrointestinal system. : No signs and/or symptoms were reported regarding the genitourinary system. EENT: No signs and/or symptoms were reported regarding the EENT system. Derm: Skin is intact, is healthy with good turgor. Musculoskeletal: Reports pain in right knee. Vital Signs: 14:35 BP 131 / 93; Pulse 89; Resp 17; Temp 97.8; Pulse Ox 100% ; Weight 79.38 kg; Height 6 ll1 ft. 0 in. (182.88 cm); Pain 8/10; 14:35 Body Mass Index 23.73 (79.38 kg, 182.88 cm) ll1 ED Course: 14:29 Patient arrived in ED. ag5 14:29 Keon Ribera MD is Private Physician. ag5 14:32 Nehemias Persaud MD is Attending Physician. rn 14:37 Triage completed. ll1 14:37 Arm band placed on Patient placed in an exam room, on a stretcher. ll1 14:38 Kianna Mackay RN is Primary Nurse. vg1 14:53 Patient has correct armband on for positive identification. Bed in low position. Call vg1 light in reach. 14:53 No provider procedures requiring assistance completed. Patient did not have IV access vg1 during this emergency room visit. Administered Medications: No medications were administered Outcome: 14:47 Discharge ordered by . rn 14:53 Discharged to home ambulatory, with family. vg1 14:53 Condition: stable 14:53 Discharge instructions given to patient, Instructed on discharge instructions, follow up and referral plans. 14:58 Patient left the ED. vg1 Signatures: Nehemias Persaud MD MD rn Gaskin, Ajare ag5 Kianna Mackay RN RN 1 Evelyn Chapman RN RN 1
--- NOTE | 2020-06-03 15:04 | DS ---
Date of Discharge: 03/12/2020 Hospital Course: The patient was admitted to the hospital on 02/22 where he presented to the emergen cy room with an apparent syncope episode. His was the main informant, she is not sure of the se quence of events: When he was seen, he was somewhat disorientated. His vital signs were stable. Al though, after he has been in the ER for a while, he became hypotensive. He also had a wound of his f orehead, which required suturing and difficulty bending his knee, which is suspected to be a contusio n only. He was seen by Neurology, felt the possibility of seizure disorder to be considered, and sin ce he has had some altered mental status and progressive memory problems according to his , he medel ggested he follow up at [facility] or with an ambulatory EEG. In any event, he had 1 significant episode o f confusion during his hospital stay, possibly secondary to Ativan as he has had some reaction to Amb ien in the past. His vital signs remained stable and his mental status improved markedly. As far as his memory is concerned, she thought perhaps it was back to baseline. Possibility of the postural h ypotension secondary to FREYA and Flomax is most likely etiology, and he was discharged in [facility] on. Follow up with myself and Neurology on 02/13. Final Diagnoses: Syncope, unknown etiology; altered mental status; contusion in the knee; hypertensi on controlled. HR/MODL Voice ID: [id number] Report ID: [id number]
== END 2020-03-12 14:58 | disposition home or self-care (01) ==
CPT/HCPCS: 99281

== ENCOUNTER 2020-12-10 11:07 | Emergency (ER) | payer SELFPAY ==
[2020-12-10 12:07] LABS: Absolute Lymphocytes (CBC) 1.8 K/uL (0.7-4.9); Basophils % 1.2 % (0-1.3); Hematocrit 46.6 % (39.6-49.0); Lymphocytes % 16.2 % (15.3-44.8); MPV 6.8 fL (7.6-11.3); RBC Red Blood Cell Count 5.26 M/uL (4.33-5.43)
[2020-12-10 12:39] LABS: ALT/SGPT 39 U/L (12-78); AST/SGOT 23 U/L (15-37); Albumin 3.8 g/dL (3.4-5.0); Alkaline Phosphatase 91 U/L (45-117); BUN Blood Urea Nitrogen 26 mg/dL (7-18); Bicarbonate 31 mmol/L (21-32); Bilirubin Direct 0.1 mg/dL (0-0.2); Bilirubin Total 0.4 mg/dL (0.2-1.0); Glucose Level 84 mg/dL (74-106); Magnesium 2.5 mg/dL (1.8-2.4); NT PRO-BNP 120 pg/mL (<125); Potassium 4.1 mmol/L (3.5-5.1); Protein, Total 7.2 g/dL (6.4-8.2); Sodium Level 142 mmol/L (136-145); Troponin (Emerg Dept Use Only) < 0.02 ng/mL (0.0-0.045)
[2020-12-10] MEDS ORDERED: TETANUS & DIPHTHERIA TOX,ADULT 0.5 ML VIAL ONE (12:40)
[2020-12-10] MEDS ORDERED: NA CHLORIDE 0.9% 1,000 ML ONE (12:40)
--- NOTE | 2020-12-10 13:28 | ER ---
Nurse's Notes [facility] Name: Laz Al Age: 65 yrs Sex: Male : 1955 Arrival Date: 12/10/2020 Time: 11:09 Bed 25 Private MD: Keon Ribera Diagnosis: Fall on same level, unspecified;Laceration without foreign body of left forearm-skin tear, not complicated;Palpitations Presentation: 12/10 11:12 Chief complaint: Spouse and/or significant other states: He fell outside on the jl7 concrete and has a skin tear to left forearm, pt reports slipping on wet concrete, denies hitting head. Coronavirus screen: Vaccine status: Patient reports receiving the 2nd dose of the covid vaccine. At this time, the client does not indicate any symptoms associated with coronavirus-19. Ebola Screen: No symptoms or risks identified at this time. Initial Sepsis Screen: Does the patient meet any 2 criteria? No. Patient's initial sepsis screen is negative. Does the patient have a suspected source of infection? No. Patient's initial sepsis screen is negative. Risk Assessment: Do you want to hurt yourself or someone else? Patient reports no desire to harm self or others. Onset of symptoms was December 10, 2020. 11:12 Method Of Arrival: Ambulatory [facility] 11:12 Acuity: RIGOBERTO 3 jl7 Triage Assessment: 11:17 General: Appears in no apparent distress. uncomfortable, Behavior is calm, cooperative, jl7 appropriate for age. Pain: Denies pain. Neuro: Level of Consciousness is awake, alert, obeys commands. Cardiovascular: Patient's skin is warm and dry. Pulses are palpable in right radial artery and left radial artery Rhythm is irregular. Historical: - Allergies: 11:17 BENZODIAZEPINES; jl7 - Home Meds: 11:17 eszopiclone 3 mg oral tab [Active]; lovastatin 20 mg Oral tab 1 tab once daily [Active];jl7 - PMHx: 11:17 High Cholesterol; Hypertension; no longer taking medications 12-10-20; cognitive issues; jl7 - Immunization history:: Adult Immunizations up to date, Client reports receiving the 2nd dose of the Covid vaccine. - Social history:: Smoking status: Patient reports the use of cigarette tobacco products, smokes one pack cigarettes per day. Screenin:33 Abuse screen: Denies threats or abuse. Denies injuries from another. Nutritional aj2 screening: No deficits noted. Tuberculosis screening: No symptoms or risk factors identified. Fall Risk None identified. Vital Signs: 11:12 BP 108 / 95; Pulse 43; Resp 17; Temp 98.3; Pulse Ox 100% ; Weight 79.38 kg; Height 6 jl7 ft. (182.88 cm); Pain 0/10; 11:33 BP 110 / 70; Pulse 80; Resp 18; Temp 98.3; Pulse Ox 100% ; aj2 13:23 BP 125 / 92; Pulse 78; Resp 18; Temp 98.3; Pulse Ox 100% ; aj2 11:12 Body Mass Index 23.73 (79.38 kg, 182.88 cm) jl7 ED Course: 11:09 Patient arrived in ED. as 11:09 Keon Ribera MD is Private Physician. as 11:17 Triage completed. jl7 11:17 Arm band placed on right wrist. jl7 11:32 Dawson Olivares is Primary Nurse. aj2 11:33 No apparent distress. Resting quietly. aj2 11:33 Patient has correct armband on for positive identification. aj2 11:33 No provider procedures requiring assistance completed. aj2 11:33 IV is patent, is intact. aj2 11:44 Sonny Arce MD is Attending Physician. brenda 11:56 Initial lab(s) drawn, by pa, sent to lab. Inserted saline lock: 20 gauge in right iw antecubital area, using aseptic technique. Blood collected. 12:11 Basic Metabolic Panel Sent. aj2 12:11 CBC with Diff Sent. aj2 12:11 LFT's Sent. aj2 12:11 Magnesium Sent. aj2 12:11 NT PRO-BNP Sent. aj2 12:11 PT-INR Sent. aj2 12:11 Troponin (emerg Dept Use Only) Sent. aj2 13:23 No apparent distress. Resting quietly. aj2 13:23 IV is patent, is intact. aj2 13:26 Keon Ribera MD is Referral Physician. brenda 13:28 Christiano Mahmood MD is Referral Physician. brenda 13:35 XRAY Chest (1 view) Sent. 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 Exp: aj2 06/13/2022. Lot #: [id number]. } Route: IM; Site: left deltoid; 13:37 Drug: Neosporin (vjmibgwu-qagjhqdkoc-jfcyllyxz) Ointment 1 application Route: Topical; aj2 Site: left forearm; Outcome: 13:27 Discharge ordered by . brenda 13:38 Discharged to home ambulatory, with significant other. 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 Industrial X Ray Operator and significant other. Demonstrated understanding of instructions, follow-up care, medications, Prescriptions given X 1. 13:41 Patient left the ED. aj2 Signatures: Sonny Arce MD MD cha Martinez, Amelia as Williams, Irene, Anabel Forbes RN, RN RN [email or web address] Dawson Olivares Christopher, RN RN ch5
--- NOTE | 2020-12-10 13:28 | EDPHYS ---
Physician Documentation [facility] Name: Laz Al Age: 65 yrs Sex: Male : 1955 Arrival Date: 12/10/2020 Time: 11:09 Bed 25 Private MD: Keon Ribera ED Physician Sonny Arce HPI: 12/10 13:20 This 65 yrs old Male presents to ER via Ambulatory with complaints of Fall brenda Injury, Skin Tear(s). 13:20 Details of fall: The patient fell from an upright position, while walking. Onset: The brenda symptoms/episode began/occurred this morning. Associated injuries: The patient sustained dorsal aspect of left forearm. Severity of symptoms: At their worst the symptoms were mild, in the emergency department the symptoms are unchanged. The patient has not experienced similar symptoms in the past. Historical: - Allergies: 11:17 BENZODIAZEPINES; jl7 - Home Meds: 11:17 eszopiclone 3 mg oral tab [Active]; lovastatin 20 mg Oral tab 1 tab once daily [Active];jl7 - PMHx: 11:17 High Cholesterol; Hypertension; no longer taking medications 12-10-20; cognitive issues; jl7 - Immunization history:: Adult Immunizations up to date, Client reports receiving the 2nd dose of the Covid vaccine. - Social history:: Smoking status: Patient reports the use of cigarette tobacco products, smokes one pack cigarettes per day. ROS: 13:21 Constitutional: Negative for fever, chills, and weight loss, Eyes: Negative for injury, brenda pain, redness, and discharge, ENT: Negative for injury, pain, and discharge, Neck: Negative for injury, pain, and swelling, Cardiovascular: Negative for chest pain, palpitations, and edema, Respiratory: Negative for shortness of breath, cough, wheezing, and pleuritic chest pain, Abdomen/GI: Negative for abdominal pain, nausea, vomiting, diarrhea, and constipation, Back: Negative for injury and pain, : Negative for injury, bleeding, discharge, and swelling, Skin: Negative for injury, rash, and discoloration, Neuro: Negative for headache, weakness, numbness, tingling, and seizure, Psych: Negative for depression, anxiety, suicide ideation, homicidal ideation, and hallucinations, Allergy/Immunology: Negative for hives, rash, and allergies, Endocrine: Negative for neck swelling, polydipsia, polyuria, polyphagia, and marked weight changes, Hematologic/Lymphatic: Negative for swollen nodes, abnormal bleeding, and unusual bruising. 13:21 MS/extremity: Positive for decreased range of motion, pain, of the dorsal aspect of left forearm. Exam: 13:21 Constitutional: This is a well developed, well nourished patient who is awake, alert, brenda and in no acute distress. Head/Face: Normocephalic, atraumatic. Eyes: Pupils equal round and reactive to light, extra-ocular motions intact. Lids and lashes normal. Conjunctiva and sclera are non-icteric and not injected. Cornea within normal limits. Periorbital areas with no swelling, redness, or edema. ENT: Nares patent. No nasal discharge, no septal abnormalities noted. Tympanic membranes are normal and external auditory canals are clear. Oropharynx with no redness, swelling, or masses, exudates, or evidence of obstruction, uvula midline. Mucous membranes moist. Neck: Trachea midline, no thyromegaly or masses palpated, and no cervical lymphadenopathy. Supple, full range of motion without nuchal rigidity, or vertebral point tenderness. No Meningismus. Chest/axilla: Normal chest wall appearance and motion. Nontender with no deformity. No lesions are appreciated. Cardiovascular: Regular rate and rhythm with a normal S1 and S2. No gallops, murmurs, or rubs. Normal PMI, no JVD. No pulse deficits. Respiratory: Lungs have equal breath sounds bilaterally, clear to auscultation and percussion. No rales, rhonchi or wheezes noted. No increased work of breathing, no retractions or nasal flaring. Abdomen/GI: Soft, non-tender, with normal bowel sounds. No distension or tympany. No guarding or rebound. No evidence of tenderness throughout. Back: No spinal tenderness. No costovertebral tenderness. Full range of motion. Skin: Warm, dry with normal turgor. Normal color with no rashes, no lesions, and no evidence of cellulitis. Neuro: Awake and alert, GCS 15, oriented to person, place, time, and situation. Cranial nerves II-XII grossly intact. Motor strength 5/5 in all extremities. Sensory grossly intact. Cerebellar exam normal. Normal gait. Psych: Awake, alert, with orientation to person, place and time. Behavior, mood, and affect are within normal limits. 13:21 Musculoskeletal/extremity: ROM: full active range of motion, full passive range of motion, Circulation is intact in all extremities. Sensation intact. Compartment Syndrome exam of affected extremity: is normal. 13:21 Skin: Appearance: normal except for affected area, abscess, not appreciated, cellulitis, is not appreciated, injury, avulsion(s), A moderate sized of the dorsal aspect of left forearm. 13:25 ECG was reviewed by the Attending Physician. [facility] Vital Signs: 11:12 BP 108 / 95; Pulse 43; Resp 17; Temp 98.3; Pulse Ox 100% ; Weight 79.38 kg; Height 6 jl7 ft. (182.88 cm); Pain 0/10; 11:33 BP 110 / 70; Pulse 80; Resp 18; Temp 98.3; Pulse Ox 100% ; aj2 13:23 BP 125 / 92; Pulse 78; Resp 18; Temp 98.3; Pulse Ox 100% ; aj2 11:12 Body Mass Index 23.73 (79.38 kg, 182.88 cm) 7 MDM: 11:44 Patient medically screened. [facility] 13:24 Differential diagnosis: contusion, abrasion. Differential diagnosis: abrasion, brenda contusion, fracture, multiple trauma, sprain, strain. Data reviewed: vital signs, nurses notes, lab test result(s), EKG, radiologic studies, plain films. Data interpreted: past due accounts clerk: rate is 80 beats/min, rhythm is regular, Pulse oximetry: on room air is 100 %. Test interpretation: by ED physician or midlevel provider: ECG, plain radiologic studies. Counseling: I had a detailed discussion with the patient and/or guardian regarding: the historical points, exam findings, and any diagnostic results supporting the discharge/admit diagnosis, lab results, radiology results, the need for outpatient follow up, for definitive care, a bow maker, a family practitioner. 12/10 11:45 Order name: Basic Metabolic Panel [facility] 12/10 11:45 Order name: CBC with Diff [facility] 12/10 11:45 Order name: LFT's; Complete Time: 13:20 [facility] 12/10 11:45 Order name: Magnesium; Complete Time: 13:20 [facility] 12/10 11:45 Order name: NT PRO-BNP; Complete Time: 13:20 [facility] 12/10 11:45 Order name: PT-INR; Complete Time: 13:20 [facility] 12/10 11:45 Order name: Troponin (emerg Dept Use Only); Complete Time: 13:20 [facility] 12/10 11:45 Order name: TSH; Complete Time: 13:20 [facility] 12/10 11:45 Order name: Basic Metabolic Panel; Complete Time: 13:20 [facility] 12/10 11:45 Order name: CBC with Automated Diff; Complete Time: 13:20 [facility] 12/10 11:45 Order name: EKG; Complete Time: 11:46 [facility] 12/10 11:45 Order name: Cardiac monitoring; Complete Time: 12:11 [facility] 12/10 11:45 Order name: EKG - Nurse/Tech; Complete Time: 12:11 [facility] 12/10 11:45 Order name: IV Saline Lock; Complete Time: 11:56 [facility] 12/10 11:45 Order name: Labs collected and sent; Complete Time: 11:56 [facility] 12/10 11:45 Order name: O2 Per Protocol; Complete Time: 11:56 [facility] 12/10 11:45 Order name: O2 Sat Monitoring; Complete Time: 11:56 [facility] 12/10 11:45 Order name: Wound dressing; Complete Time: 13:35 [facility] 12/10 13:20 Order name: Gloves, Sterile; Complete Time: 13:35 [facility] 12/10 13:20 Order name: Setup Suture Tray; Complete Time: 13:34 [facility] EC:25 Rate is 75 beats/min. Rhythm is regular. QRS [place] is Normal. RI interval is normal. QRS brenda interval is normal. QT interval is normal. No Q waves. T waves are Normal. No ST changes noted. Clinical impression: Normal ECG and No evidence of ischemia. Interpreted by me. Reviewed by me. 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 Exp: aj2 06/13/2022. Lot #: [id number]. } Route: IM; Site: left deltoid; 13:37 Drug: Neosporin (doafatuw-gontvorzos-yxysmcffe) Ointment 1 application Route: Topical; aj2 Site: left forearm; Disposition Summary: 12/10/20 13:27 Discharge Ordered Location: Home brenda Problem: new brenda Symptoms: have improved brenda Condition: Stable brenda Diagnosis - Fall on same level, unspecified brenda - Laceration without foreign body of left forearm - skin tear, not complicated brenda - Palpitations brenda Followup: brenda - With: Keon Ribera MD - When: 2 - 3 days - Reason: Recheck today's complaints, Continuance of care, Re-evaluation by your physician Followup: brenda - With: Christiano Mahmood MD - When: 5 - 6 days - Reason: Recheck today's complaints, Re-evaluation by your physician Discharge Instructions: - Discharge Summary Sheet brenda - Fall Prevention in the Home, Adult brenda - Skin Tear brenda - Skin Tear, Grll-hw-Tyak brenda - Palpitations brenda - Fall Prevention in the Home, Adult, Hxyw-nx-Hqeh brenda - Palpitations, Kgzt-so-Iheb brenda Forms: - Medication Reconciliation Form brenda - Thank You Letter brenda - Antibiotic Education brenda - Prescription Opioid Use brenda Prescriptions: - Centany 2 % Topical ointment - apply 1 application by TOPICAL route 3 times per day; 30 gram; Refills: 0, brenda Product Selection Permitted Signatures: Dispatcher [employer] Sonny Kitchen MD MD cha Leal, Jahala, RN RN Dawson Abraham aj2
[2020-12-10] MEDS ORDERED: NEOMYCIN/BAC/POLY OPTH 3.5GM ONE (13:44)
[2020-12-10 13:47] VITALS: TEMP 98.3; O2SAT 100
[2020-12-10 13:50] VITALS: BP 125/92
--- NOTE | 2020-12-10 16:39 | EKG ---
Test Date: 2020-12-10 Test Time: 11:54:14 Furniture Removalist: LUZMA MEASUREMENT RESULTS: Intervals: Rate: 75 OK: 128 QRSD: 80 QT: 366 QTc: 408 [place]: P: 57 OK: 128 QRS: -7 T: 46 INTERPRETIVE STATEMENTS: Normal sinus rhythm Normal ECG Compared to ECG 02/12/2020 18:25:34 Ventricular premature complex(es) no longer present Myocardial infarct finding no longer present Electronically Signed On 12-10-20 16:38:47 CDT by Christiano Mahmood
== END 2020-12-10 13:41 | disposition home or self-care (01) ==
LOC: ER 11:07
DX: S51.812A Laceration without foreign body of left forearm, initial encounter (principal); R00.2 Palpitations; W18.30XA Fall on same level, unspecified, initial encounter; E78.00 Pure hypercholesterolemia, unspecified; F17.210 Nicotine dependence, cigarettes, uncomplicated; I10 Essential (primary) hypertension; Z23 Encounter for immunization; Z88.5 Allergy status to narcotic agent
CPT/HCPCS: 36415; 80048; 80076; 83735; 83880; 84443; 84484; 85025; 85610; 90471; 90714; 93005; 99284; J7030

== ENCOUNTER 2021-08-09 22:59 | Emergency (ER) | payer BC ==
[2021-08-09 23:35] LABS: Absolute Lymphocytes (CBC) 2.6 K/uL (0.7-4.9); Hematocrit 45.3 % (39.6-49.0); Lymphocytes % 23.5 % (15.3-44.8); MPV 6.6 fL (7.6-11.3); RBC Red Blood Cell Count 5.17 M/uL (4.33-5.43)
[2021-08-09 23:55] LABS: Potassium 3.5 mmol/L (3.5-5.1)
--- NOTE | 2021-08-10 02:08 | ER ---
Nurse's Notes [facility] Name: Laz Al Age: 65 yrs Sex: Male : 1955 Arrival Date: 08/09/2021 Time: 23:01 Bed 7 Private MD: Diagnosis: Edema, unspecified Presentation: 08/09 23:13 Chief complaint: Spouse and/or significant other states: bilateral foot/leg pain on lg3 ambulation. bilateral swelling of ankles. Coronavirus screen: Client denies travel out of the [place] in the last 14 days. At this time, the client does not indicate any symptoms associated with coronavirus-19. Ebola Screen: No symptoms or risks identified at this time. Initial Sepsis Screen: Does the patient meet any 2 criteria? No. Patient's initial sepsis screen is negative. Does the patient have a suspected source of infection? No. Patient's initial sepsis screen is negative. Risk Assessment: Do you want to hurt yourself or someone else? Patient reports no desire to harm self or others. Onset of symptoms is unknown. 23:13 Method Of Arrival: Wheelchair lg3 23:13 Acuity: RIGOBERTO 3 lg3 Triage Assessment: 23:14 General: Appears in no apparent distress. comfortable, Behavior is calm, cooperative. lg3 Pain: Denies pain. EENT: No deficits noted. No signs and/or symptoms were reported regarding the EENT system. Neuro: Tanner Agitation-Sedation Scale (RASS): 0 - Alert and Calm Level of Consciousness is awake, alert, obeys commands, confused, Oriented to person, place, situation. Cardiovascular: No deficits noted. Denies chest pain, shortness of breath, Capillary refill < 3 seconds Clubbing of nail beds is absent JVD is absent Patient's skin is warm and dry. Respiratory: No deficits noted. Airway is patent Trachea midline Respiratory effort is even, unlabored, Respiratory pattern is regular, symmetrical. GI: No deficits noted. No signs and/or symptoms were reported involving the gastrointestinal system. Abdomen is flat, non-distended. : No deficits noted. No signs and/or symptoms were reported regarding the genitourinary system. Derm: No deficits noted. No signs and/or symptoms reported regarding the dermatologic system. Skin is intact, is thin, Skin is dry, Skin is pink, warm \T\ dry. Musculoskeletal: No deficits noted. Circulation, motion, and sensation intact. Capillary refill < 3 seconds, Range of motion: intact in all extremities. Historical: - Allergies: 23:14 BENZODIAZEPINES; lg3 - PMHx: 23:14 Cognitive Issues; High Cholesterol; Hypertension; no longer taking medications 12-10-20; lg3 - PSHx: 23:14 bilateral knee; left foot; lg3 - Immunization history:: Adult Immunizations up to date, Client reports receiving the 2nd dose of the Covid vaccine, moderna X3. - Social history:: Smoking status: Patient reports the use of cigarette tobacco products, smokes two packs cigarettes per day. Patient/guardian denies using alcohol, street drugs. - Family history:: not pertinent. - Hospitalizations: : No recent hospitalization is reported. Screenin:17 Abuse screen: Denies threats or abuse. Denies injuries from another. Nutritional lg3 screening: No deficits noted. Tuberculosis screening: No symptoms or risk factors identified. Fall Risk None identified. Assessment: 23:31 General: see triage assessment. lg3 23:57 Reassessment:. General: Appears in no apparent distress. comfortable, Behavior is calm, lg3 cooperative. Pain: Denies pain. Neuro: No deficits noted. Tanner Agitation-Sedation Scale (RASS): 0 - Alert and Calm. Respiratory: Airway is patent Trachea midline Respiratory effort is even, unlabored, Respiratory pattern is regular, symmetrical. 08/10 00:41 Reassessment: Patient appears in no apparent distress at this time. No changes from lg3 previously documented assessment. Patient and/or family updated on plan of care and expected duration. Pain level reassessed. Patient is alert, oriented x 3, equal unlabored respirations, skin warm/dry/pink. Patient denies pain at this time. 02:13 Reassessment: Patient appears in no apparent distress at this time. No changes from lg3 previously documented assessment. Patient and/or family updated on plan of care and expected duration. Pain level reassessed. Patient is alert, oriented x 3, equal unlabored respirations, skin warm/dry/pink. Patient denies pain at this time. Vital Signs: 08/09 23:13 BP 143 / 99; Pulse 73; Resp 17; Temp 98.4(O); Pulse Ox 99% on R/A; Weight 77.11 kg (R); lg3 Height 6 ft. 1 in. (185.42 cm) (R); Pain 0/10; 23:57 BP 149 / 96; Pulse 71; Resp 17 S; Pulse Ox 99% on R/A; lg3 08/10 01:04 BP 147 / 93; Pulse 74; Resp 16 S; Pulse Ox 100% on R/A; lg3 02:13 BP 159 / 90; Pulse 61; Resp 17 S; Pulse Ox 99% on R/A; lg3 08/09 23:13 Body Mass Index 22.43 (77.11 kg, 185.42 cm) lg3 ED Course: 08/09 23:01 Patient arrived in ED. jj6 23:04 Nehemias Persaud MD is Attending Physician. rn 23:14 Triage completed. lg3 23:14 Arm band placed on right wrist. lg3 23:17 Patient has correct armband on for positive identification. Bed in low position. Call lg3 light in reach. Side rails up X 1. Client placed on continuous cardiac and pulse oximetry monitoring. NIBP monitoring applied. Door closed. Noise minimized. Warm blanket given. Family accompanied patient. 23:19 Yanique Reyna, RN is Primary Nurse. lg3 23:31 BNP Sent. lg3 23:31 Basic Metabolic Panel Sent. lg3 23:31 CBC with Diff Sent. lg3 23:32 Inserted saline lock: 20 gauge in right forearm, using aseptic technique. Blood lg3 collected. 08/10 01:02 XRAY Ankle LEFT 3 view In Process Unspecified. EDMS 01:02 XRAY Ankle RIGHT 3 view In Process Unspecified. EDMS 02:21 No provider procedures requiring assistance completed. IV discontinued, intact, lg3 bleeding controlled, No redness/swelling at site. Pressure dressing applied. Administered Medications: No medications were administered Medication: 01:05 VIS not applicable for this client. lg3 Outcome: 02:07 Discharge ordered by . rn 02:21 Discharged to home via wheelchair, with significant other. lg3 02:21 Condition: stable 02:21 Discharge instructions given to patient, significant other, Instructed on discharge instructions, Demonstrated understanding of instructions. 02:22 Patient left the ED. lg3 Signatures: Dispatcher [employer] EDMS Nehemias Persaud MD MD rn Gibson, Lacie, RN RN lg3 Amina Guamanj6
--- NOTE | 2021-08-10 02:08 | EDPHYS ---
Physician Documentation [facility] Name: Laz Al Age: 65 yrs Sex: Male : 1955 Arrival Date: 08/09/2021 Time: 23:01 Bed 7 Private MD: ED Physician Nehemias Persaud HPI: 08/10 01:07 This 65 yrs old Male presents to ER via Wheelchair with complaints of Swelling of Lower rn Extremity. 01:07 The patient presents with swelling. The complaints affect the anterior aspect of left rn ankle and dorsum of left foot, anterior aspect of right ankle and dorsum of right foot. 01:07 Onset: The symptoms/episode began/occurred 1 week(s) ago. Modifying factors: The rn symptoms are alleviated by nothing. the symptoms are aggravated by nothing. Associated signs and symptoms: Pertinent negatives fever, warmth, weakness. Severity of symptoms: At their worst the symptoms were mild, in the emergency department the symptoms are unchanged. The patient has not experienced similar symptoms in the past. The patient has not recently seen a physician. reports atleast 1 week of swelling to both feet and ankles. Pt spends a lot of time sitting. No injury. No fever. No hx of DVT. No trauma. No weakness. Has not happened before. No hx of CHF or renal failure. . Historical: - Allergies: 08/09 23:14 BENZODIAZEPINES; lg3 - PMHx: 23:14 Cognitive Issues; High Cholesterol; Hypertension; no longer taking medications 12-10-20; lg3 - PSHx: 23:14 bilateral knee; left foot; lg3 - Immunization history:: Adult Immunizations up to date, Client reports receiving the 2nd dose of the Covid vaccine, moderna X3. - Social history:: Smoking status: Patient reports the use of cigarette tobacco products, smokes two packs cigarettes per day. Patient/guardian denies using alcohol, street drugs. - Family history:: not pertinent. - Hospitalizations: : No recent hospitalization is reported. ROS: 08/10 01:07 Constitutional: Negative for fever, chills, and weight loss, Eyes: Negative for injury, rn pain, redness, and discharge, Neck: Negative for injury, pain, and swelling, Cardiovascular: Negative for chest pain, palpitations Respiratory: Negative for shortness of breath, cough, wheezing, and pleuritic chest pain, Abdomen/GI: Negative for abdominal pain, nausea, vomiting, diarrhea, and constipation, Back: Negative for injury and pain, MS/Extremity: Negative for injury and deformity, Skin: Negative for injury, rash, and discoloration, Neuro: Negative for headache, weakness, numbness, tingling, and seizure. Exam: 01:07 Constitutional: This is a well developed, well nourished patient who is awake, alert, rn and in no acute distress. Head/Face: Normocephalic, atraumatic. Eyes: Periorbital areas with no swelling, redness, or edema. Cardiovascular: Regular rate and rhythm. No pulse deficits. Respiratory: No increased work of breathing, no retractions or nasal flaring. Abdomen/GI: Soft, non-tender Skin: Warm, dry, no rash or lesions MS/ Extremity: Pulses equal, no cyanosis. Neurovascular intact. Full, normal range of motion. Equal circumference. Mild swelling at both ankles, non-pitting edema Neuro: Awake and alert, GCS 15, oriented to person, place, time, and situation. Cranial nerves II-XII grossly intact. Motor strength 5/5 in all extremities. Sensory grossly intact. Cerebellar exam normal. Normal gait. Vital Signs: 08/09 23:13 BP 143 / 99; Pulse 73; Resp 17; Temp 98.4(O); Pulse Ox 99% on R/A; Weight 77.11 kg (R); lg3 Height 6 ft. 1 in. (185.42 cm) (R); Pain 0/10; 23:57 BP 149 / 96; Pulse 71; Resp 17 S; Pulse Ox 99% on R/A; lg3 08/10 01:04 BP 147 / 93; Pulse 74; Resp 16 S; Pulse Ox 100% on R/A; lg3 02:13 BP 159 / 90; Pulse 61; Resp 17 S; Pulse Ox 99% on R/A; lg3 08/09 23:13 Body Mass Index 22.43 (77.11 kg, 185.42 cm) lg3 MDM: 08/09 23:04 Patient medically screened. rn 08/10 02:06 Differential diagnosis: dependent edema, occult fracture, kidney failure, CHF, popcorn vendor side effect. Data reviewed: vital signs, nurses notes, lab test result(s), radiologic studies, plain films, and as a result, I will discharge patient. Counseling: I had a detailed discussion with the patient and/or guardian regarding: the historical points, exam findings, and any diagnostic results supporting the discharge/admit diagnosis, lab results, radiology results, the need for outpatient follow up, to return to the emergency department if symptoms worsen or persist or if there are any questions or concerns that arise at home. Special discussion: I discussed with the patient/guardian in detail that at this point there is no indication for admission to the hospital. It is understood, however, that if the symptoms persist or worsen the patient needs to return immediately for re-evaluation. Based on the history and exam findings, there is no indication for further emergent testing or inpatient evaluation. I discussed with the patient/guardian the need to see the primary care provider for further evaluation of the symptoms. 08/09 23:19 Order name: CBC with Diff; Complete Time: 00:20 rn 08/09 23:19 Order name: Basic Metabolic Panel; Complete Time: 00:20 rn 08/09 23:19 Order name: IV Start; Complete Time: 23:31 rn 08/09 23:19 Order name: XRAY Ankle LEFT 3 view rn 08/09 23:19 Order name: XRAY Ankle RIGHT 3 view rn 08/09 23:19 Order name: BNP; Complete Time: 00:20 rn Administered Medications: No medications were administered Disposition Summary: 08/10/21 02:07 Discharge Ordered Location: Home rn Problem: new rn Symptoms: have improved rn Condition: Stable rn Diagnosis - Edema, unspecified rn Followup: rn - With: Private Physician - When: As needed - Reason: Recheck today's complaints, Re-evaluation by your physician Discharge Instructions: - Discharge Summary Sheet rn - Peripheral Edema rn Forms: - Medication Reconciliation Form rn - Thank You Letter rn - Antibiotic harnessmaker - Prescription Opioid Use rn Signatures: Dispatcher [employer] EDNehemias Mcfadden MD MD rn Gibson, Lacie, RN RN lg3
[2021-08-10 02:46] VITALS: TEMP 98.4
[2021-08-10 02:50] VITALS: BP 159/90; O2SAT 99
--- NOTE | 2021-08-11 16:36 | RAD REPORT ---
EXAM DESCRIPTION: R ANKLE 3 OR MORE VIEWS CLINICAL HISTORY: Swelling COMPARISON: None. TECHNIQUE: XR ANKLE 3 OR MORE VIEWS 08/09/2021 11:19 PM CDT FINDINGS: There is no fracture. Joint spaces are preserved. There is mild soft tissue swelling miriam rounding the left ankle. IMPRESSION: No acute osseous findings. Electronically signed by: Gilberto Wang MD 08/10/2021 1:55 AM CDT Due to temporary technical issues with the PACS/Fluency reporting system, reports are being signed by the in house radiologists without review as a courtesy to insure prompt reporting. The interpreting radiologist is fully responsible for the content of the report.
--- NOTE | 2021-08-11 16:43 | RAD REPORT ---
EXAM DESCRIPTION: XR ANKLE 3 OR MORE VIEWS CLINICAL HISTORY: Swelling COMPARISON: None. TECHNIQUE: XR ANKLE 3 OR MORE VIEWS 08/09/2021 11:19 PM CDT FINDINGS: There is no fracture. Joint spaces are preserved. There is mild soft tissue swelling miriam rounding the left ankle. IMPRESSION: No acute osseous findings. Electronically signed by: Gilberto Wang MD 08/10/2021 1:55 AM CDT Due to temporary technical issues with the PACS/Fluency reporting system, reports are being signed by the in house radiologists without review as a courtesy to insure prompt reporting. The interpreting radiologist is fully responsible for the content of the report.
== END 2021-08-10 02:22 | disposition home or self-care (01) ==
LOC: ER 22:59
DX: R60.9 Edema, unspecified (principal); I10 Essential (primary) hypertension; E78.00 Pure hypercholesterolemia, unspecified; F17.210 Nicotine dependence, cigarettes, uncomplicated
CPT/HCPCS: 36415; 80048; 83880; 85025; 99284

== ENCOUNTER 2021-11-18 00:08 | Emergency (ER) | payer BC ==
--- NOTE | 2021-11-18 03:15 | ER ---
Nurse's Notes [facility] Name: Laz Al Age: 66 yrs Sex: Male : 1955 Arrival Date: 11/18/2021 Time: 00:14 Bed 13 Private MD: Diagnosis: Pain in right toe(s) Presentation: 11/18 00:14 Chief complaint: EMS states: Pt injured his 3rd toe on his right foot. Coronavirus jb4 screen: At this time, the client does not indicate any symptoms associated with coronavirus-19. Ebola Screen: No symptoms or risks identified at this time. Initial Sepsis Screen: Does the patient meet any 2 criteria? No. Patient's initial sepsis screen is negative. Does the patient have a suspected source of infection? No. Patient's initial sepsis screen is negative. Risk Assessment: Do you want to hurt yourself or someone else? Patient reports no desire to harm self or others. Onset of symptoms was November 18, 2021. Transition of care: patient was not received from another setting of care. 00:14 Method Of Arrival: EMS: [facility] jb4 00:14 Acuity: RIGOBERTO 4 jb4 Historical: - Allergies: 00:17 BENZODIAZEPINES; jb4 - PMHx: 00:17 Cognitive Issues; High Cholesterol; Hypertension; no longer taking medications 12-10-20; jb4 - PSHx: 00:17 bilateral knee; left foot; jb4 - Immunization history:: Adult Immunizations unknown. - Social history:: Smoking status: unknown. Screenin:30 Abuse screen: Denies threats or abuse. Nutritional screening: No deficits noted. jb4 Tuberculosis screening: No symptoms or risk factors identified. Fall Risk None identified. Assessment: 00:30 General: Appears in no apparent distress. comfortable, Behavior is calm, cooperative, jb4 appropriate for age. Pain: Denies pain. Neuro: Level of Consciousness is awake, alert, obeys commands, Oriented to person. Cardiovascular: Patient's skin is warm and dry. Respiratory: Airway is patent Respiratory effort is even, unlabored, Respiratory pattern is regular, symmetrical. Derm: Skin is intact, Skin is pink, warm \T\ dry. Musculoskeletal: Circulation, motion, and sensation intact. Range of motion: intact in all extremities. 02:00 Reassessment: Patient appears in no apparent distress at this time. No changes from jb4 previously documented assessment. Patient and/or family updated on plan of care and expected duration. Pain level reassessed. 03:00 Reassessment: Patient appears in no apparent distress at this time. No changes from jb4 previously documented assessment. Patient and/or family updated on plan of care and expected duration. Pain level reassessed. Vital Signs: 00:14 BP 154 / 93; Pulse 79; Resp 16; Temp 98.3(O); Pulse Ox 100% on R/A; Height 6 ft. 1 in. jb4 (185.42 cm); 01:15 BP 149 / 92; Pulse 65; Resp 18; Pulse Ox 100% on R/A; jb4 02:45 BP 127 / 87; Pulse 62; Resp 16; Pulse Ox 100% on R/A; jb4 ED Course: 00:14 Patient arrived in ED. jb4 00:17 Triage completed. jb4 00:17 Arm band placed on right wrist. jb4 00:18 Sonny Harry PA is PHCP. cp 00:19 Sonny Arce MD is Attending Physician. cp 00:30 Patient has correct armband on for positive identification. Placed in gown. Bed in low jb4 position. Call light in reach. Side rails up X 1. Client placed on continuous cardiac and pulse oximetry monitoring. NIBP monitoring applied. 01:06 XRAY Foot RIGHT 3 View In Process Unspecified. EDMS 01:28 Ivan Zuluaga, RN is Primary Nurse. jb4 03:06 US Extremity Venous W Compression Julio In Process Unspecified. EDMS 03:54 No provider procedures requiring assistance completed. Patient did not have IV access jb4 during this emergency room visit. Administered Medications: No medications were administered Medication: 00:30 VIS not applicable for this client. jb4 Outcome: 03:15 Discharge ordered by . cp 03:54 Discharged to home via wheelchair, with family. jb4 03:54 Condition: stable 03:54 Discharge instructions given to family, Instructed on discharge instructions, follow up and referral plans. medication usage, Demonstrated understanding of instructions, follow-up care, medications, Prescriptions given X 1. 03:55 Patient left the ED. jb4 Signatures: Dispatcher [employer] EDME Sonny Harry PA PA cp Ivan Zuluaga, RN RN jb4
--- NOTE | 2021-11-18 03:15 | EDPHYS ---
Physician Documentation [facility] Name: Laz Al Age: 66 yrs Sex: Male : 1955 Arrival Date: 11/18/2021 Time: 00:14 Bed 13 Private MD: ED Physician Sonny Arce HPI: 11/18 01:00 This 66 yrs old Male presents to ER via EMS with complaints of Toe Pain. cp 01:00 The patient presents with tenderness, ecchymosis. cp 01:00 The complaints affect the right third toe. Context: resulted from an unknown cause, the cp patient can fully bear weight. 01:00 Onset: The symptoms/episode began/occurred at an unknown time. reports noticing cp bruising of right third toe today. Associated signs and symptoms: The patient has no apparent associated signs or symptoms. Historical: - Allergies: 00:17 BENZODIAZEPINES; jb4 - PMHx: 00:17 Cognitive Issues; High Cholesterol; Hypertension; no longer taking medications 12-10-20; jb4 - PSHx: 00:17 bilateral knee; left foot; jb4 - Immunization history:: Adult Immunizations unknown. - Social history:: Smoking status: unknown. ROS: 01:05 Constitutional: Negative for body aches, chills, fever, poor PO intake. cp 01:05 Eyes: Negative for injury, pain, redness, and discharge. cp 01:05 Cardiovascular: Negative for chest pain, edema, palpitations. 01:05 Respiratory: Negative for cough, shortness of breath, wheezing. 01:05 MS/extremity: Positive for ecchymosis, pain, of the right third toe, Negative for injury or acute deformity, decreased range of motion, deformity, paresthesias. 01:05 Neuro: Negative for weakness. cp 01:05 All other systems are negative. Exam: 01:10 Constitutional: The patient appears in no acute distress, alert, awake, comfortable, cp non-toxic, well developed, well nourished. 01:10 Head/Face: Normocephalic, atraumatic. cp 01:10 Chest/axilla: Inspection: normal. 01:10 Cardiovascular: Rate: normal, Rhythm: regular, Pulses: Pulses are 2+ in right dorsalis pedis artery and left dorsalis pedis artery. Edema: ankle edema, that is mild. 01:10 Respiratory: the patient does not display signs of respiratory distress, Respirations: normal, no use of accessory muscles, no retractions, labored breathing, is not present. 01:10 Abdomen/GI: Exam negative for discomfort, distension, guarding, Inspection: abdomen appears normal. 01:10 Musculoskeletal/extremity: Extremities: grossly normal except: noted in the right third toe: ecchymosis, swelling, tenderness, There is no evidence of decreased ROM, deformity, Perfusion: the extremity is warm, with brisk capillary refill, the right third toe Sensation intact. 01:10 Skin: cellulitis, is not appreciated. Vital Signs: 00:14 BP 154 / 93; Pulse 79; Resp 16; Temp 98.3(O); Pulse Ox 100% on R/A; Height 6 ft. 1 in. jb4 (185.42 cm); 01:15 BP 149 / 92; Pulse 65; Resp 18; Pulse Ox 100% on R/A; jb4 02:45 BP 127 / 87; Pulse 62; Resp 16; Pulse Ox 100% on R/A; jb4 MDM: 00:27 Patient medically screened. brenda 01:00 Differential diagnosis: fracture, sprain, cellulitis, DVT, less likely arterial cp occlusion. 03:15 Data reviewed: vital signs, nurses notes, radiologic studies, plain films, ultrasound. cp 03:15 Counseling: I had a detailed discussion with the patient and/or guardian regarding: the cp historical points, exam findings, and any diagnostic results supporting the discharge/admit diagnosis, radiology results, the need for outpatient follow up, a family practitioner, to return to the emergency department if symptoms worsen or persist or if there are any questions or concerns that arise at home. 11/18 00:44 Order name: XRAY Foot RIGHT 3 View cp 11/18 00:44 Order name: US Extremity Venous W Compression Julio cp Administered Medications: No medications were administered Disposition Summary: 11/18/21 03:15 Discharge Ordered Location: Home cp Problem: new cp Symptoms: have improved cp Condition: Stable cp Diagnosis - Pain in right toe(s) cp Followup: cp - With: Private Physician - When: 2 - 3 days - Reason: Recheck today's complaints Discharge Instructions: - Discharge Summary Sheet cp - Foot Pain cp Forms: - Medication Reconciliation Form cp - Thank You Letter cp - Antibiotic Education cp - Prescription Opioid Use cp Prescriptions: - Ibuprofen 800 mg Oral Tablet - take 1 tablet by ORAL route every 8 hours As needed take with food; 30 tablet; cp Refills: 0, Product Selection Permitted Signatures: Dispatcher [employer] EDSonny Alamo MD MD cha Page, Corey, PA PA cp Ivan Zuluaga, RN RN jb4 Corrections: (The following items were deleted from the chart) 03:15 03:15 Pain in left toe(s) cp cp 11/19 03:41 11/18 01:05 MS/extremity: Positive for ecchymosis, pain, of the right third toe, cp Negative for cp
[2021-11-18 08:50] VITALS: TEMP 98.3; O2SAT 100
[2021-11-18 08:54] VITALS: BP 127/87
--- NOTE | 2021-11-18 12:34 | RAD REPORT ---
EXAM DESCRIPTION: RAD - Foot Right 3 View - 11/18/2021 1:03 am CLINICAL HISTORY: Toe swelling TECHNIQUE: Frontal, lateral and oblique views of the right foot. COMPARISON: No relevant prior studies available. FINDINGS: Bones/joints: No acute or remote fracture. No osseous destruction or erosion. Developmen crissy fusion at the 5th DIP articulation. No dislocation. Soft tissues: Unremarkable. No radiopaque foreign body. IMPRESSION: No osseous destruction or erosion. Electronically signed by: Dipesh Erwin MD 11/18/2021 1:33 AM CDT Due to temporary technical issues with the PACS/Fluency reporting system, reports are being signed by the in house radiologists without review as a courtesy to insure prompt reporting. The interpreting radiologist is fully responsible for the content of the report.
--- NOTE | 2021-11-18 13:57 | RAD REPORT ---
EXAM DESCRIPTION: US - Extrem Venous W Compress Julio - 11/18/2021 7:16 am CLINICAL HISTORY: Swelling. COMPARISON: None. TECHNIQUE: Grayscale, color Doppler, duplex Doppler, spectral Doppler images and analysis with compr ession and augmentation of right and left lower extremity veins. FINDINGS: Right and Left common femoral, greater saphenous, femoral, deep (profunda) femoral, poplit eal, posterior tibial, anterior tibial, and peroneal veins unremarkable without evidence of clot. Left popliteal fossa cystic lesion measuring 3.7 x 0.7 x 1.0 cm. IMPRESSION: 1. No sonographic evidence of right or left lower extremity DVT. 2. Small left popliteal (Bedolla) cyst. Electronically signed by: Martinez Olivares MD 11/18/2021 3:24 AM CDT Due to temporary technical issues with the PACS/Fluency reporting system, reports are being signed by the in house radiologists without review as a courtesy to insure prompt reporting. The interpreting radiologist is fully responsible for the content of the report.
== END 2021-11-18 03:55 | disposition home or self-care (01) ==
LOC: ER 00:08
DX: M79.674 Pain in right toe(s) (principal); Z88.5 Allergy status to narcotic agent
CPT/HCPCS: 93970; 99283

== ENCOUNTER 2021-11-18 15:17 | Inpatient (IN) | payer BC ==
[2021-11-18 17:11] LABS: SARS-CoV-2 Antigen Rapid Res Negative (Negative)
[2021-11-18 18:09] LABS: Absolute Lymphocytes (CBC) 2.3 K/uL (0.7-4.9); Hematocrit 42.1 % (39.6-49.0); Lymphocytes % 21.4 % (15.3-44.8); MCV 85.6 fL (80-100); MPV 6.8 fL (7.6-11.3); RBC Red Blood Cell Count 4.92 M/uL (4.33-5.43)
[2021-11-18 18:16] LABS: Potassium 3.7 mmol/L (3.5-5.1)
--- NOTE | 2021-11-18 18:42 | ER ---
Nurse's Notes [facility] Name: Laz Al Age: 66 yrs Sex: Male : 1955 Arrival Date: 11/18/2021 Time: 15:20 Bed 4 Private MD: Diagnosis: Dementia in other diseases classified elsewhere with behavioral disturbance;Restlessness and agitation;Dehydration Presentation: 11/18 15:20 Chief complaint: EMS states: CALLED EMS DUE TO BEING UNABLE TO DEAL WITH bp AGGRESSIVE ALZHEIMER'S. Coronavirus screen: At this time, the client does not indicate any symptoms associated with coronavirus-19. Ebola Screen: No symptoms or risks identified at this time. Initial Sepsis Screen: Does the patient meet any 2 criteria? No. Patient's initial sepsis screen is negative. Does the patient have a suspected source of infection? No. Patient's initial sepsis screen is negative. Risk Assessment: Do you want to hurt yourself or someone else? Unable to obtain. Onset of symptoms is unknown. 15:20 Method Of Arrival: EMS: [facility] bp 15:20 Acuity: RIGOBERTO 2 bp Triage Assessment: 15:30 General: Appears in no apparent distress. Behavior is agitated, anxious. Pain: Denies bp pain. EENT: No deficits noted. Neuro: Level of Consciousness is awake, obeys commands, Oriented to person. Cardiovascular: No deficits noted. Respiratory: No deficits noted. GI: No signs and/or symptoms were reported involving the gastrointestinal system. : No signs and/or symptoms were reported regarding the genitourinary system. Derm: No deficits noted. Musculoskeletal: No deficits noted. Historical: - Allergies: 15:21 BENZODIAZEPINES; bp - Home Meds: 15:21 eszopiclone 3 mg Oral tab [Active]; losartan 50 mg Oral tab 1 tab once daily [Active]; bp lovastatin 20 mg Oral tab 1 tab once daily [Active]; tamsulosin 0.4 mg Oral cp24 2 caps once daily [Active]; temazepam 15 mg Oral cap 1 cap once daily [Active]; - PMHx: 15:21 Cognitive Issues; High Cholesterol; Hypertension; no longer taking medications 12-10-20; bp - PSHx: 15:21 bilateral knee; left foot; bp - Immunization history:: Adult Immunizations up to date. - Social history:: Smoking status: Patient denies any tobacco usage or history of. - Family history:: not pertinent. - Hospitalizations: : No recent hospitalization is reported. Screenin:30 Abuse screen: Denies threats or abuse. Denies injuries from another. Nutritional bp screening: No deficits noted. Tuberculosis screening: No symptoms or risk factors identified. Fall Risk No fall in past 12 months (0 pts). Secondary diagnosis (15 points) Alzheimer's, dementia, No IV (0 pts). Ambulatory Aid- None/Bed Rest/Nurse Assist (0 pts). Gait- Normal/Bed Rest/Wheelchair (0 pts) Mental Status- Overestimates/Forgets Limitations (15 pts.). Total Lovelace Fall Scale indicates Low Risk Score (25-44 pts). Fall prevention measures have been instituted. Side Rails Up X 2 Placed close to Nursing Station 1:1 attendant Assigned to Pt. Frequent Obs/Assesments occuring Family Present and informed to notify staff if they need to leave bedside As available Patient and Family Educated on Fall Prevention Program and strategies. Assessment: 15:30 General: PT REQUIRING 1:1 SUPERVISION, ATTEMPTING TO ENTER OTHER PT ROOMS AND REQUIRING bp FREQUENT REDIRECTION TO REMAIN IN ROOM. 16:35 Reassessment: MD AT B/S WITH FAMILY. PT REFUSING HEALTH CARE ACTIVITIES, THREATENING bp STAFF WHEN ATTEMPTED. MD NOTIFIED. 19:25 General: Appears in no apparent distress. Behavior is anxious, restless, uncooperative. kd3 Neuro: Level of Consciousness is awake, alert, confused. Respiratory: Airway is patent Trachea midline Respiratory effort is even, unlabored, Respiratory pattern is regular, symmetrical. GI: Abdomen is non-distended. 19:26 General: pt refusing vitals at this time. now at bedside. at this time pt remains kd3 confused but is not violent. . 19:27 General: Behavior is restless. as6 21:14 General: pt still refusing vitals. pt stable and resting. ot transferred to the floor. .kd3 Vital Signs: 15:20 BP 163 / 83; Pulse 89; Resp 16; Temp 97; Pulse Ox 99% ; bp ED Course: 15:20 Patient arrived in ED. bp 15:21 Triage completed. bp 15:22 Nehemias Persaud MD is Attending Physician. rn 15:30 Arm band placed on. bp 15:30 Patient has correct armband on for positive identification. Bed in low position. Call bp light in reach. Side rails up X2. Adult w/ patient. 15:40 Sudhakar Mendoza, RN is Primary Nurse. bp 18:41 Chet Marie is Hospitalizing Provider. rn 19:44 Inserted saline lock: 22 gauge in left forearm, using aseptic technique. as6 21:13 No provider procedures requiring assistance completed. Patient admitted, IV remains in kd3 place. Administered Medications: No medications were administered Medication: 15:30 VIS not applicable for this client. bp Outcome: 18:41 Decision to Hospitalize by Provider. rn 21:14 Admitted to Med/surg accompanied by nurse, room 402. kd3 21:14 Condition: stable 21:14 Discharge instructions given to patient, family, Instructed on the need for admit, Demonstrated understanding of instructions, follow-up care. 21:15 Patient left the ED. kd3 Signatures: Nehemias Persaud MD MD rn Peltier, Brian, RN RN Filiberto Laek, JACKY RN as6 Yuni Aranda RN RN kd3
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
[2021-11-18] MEDS ORDERED: QUETIAPINE 100MG TAB PO SCH (21:37)
[2021-11-18] MEDS ORDERED: ONDANSETRON 4 MG/2 ML VIAL IV PRN (21:37)
[2021-11-18] MEDS ORDERED: ACETAMINOPHEN 500 MG TAB PO PRN (21:37)
[2021-11-18 21:58] VITALS: BMI 24.4
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
[2021-11-19] MEDS: ZIPRASIDONE MESYLA 20 MG/VIAL IM PRN ×5 (00:05→21:16)
[2021-11-19] MEDS ORDERED: ZIPRASIDONE MESYLA 20 MG/VIAL IM ONE (00:10)
[2021-11-19 00:41] LABS: Urine Mucus Slight /HPF (None Seen); Urine RBC <5 /HPF (None Seen)
[2021-11-19 00:42] LABS: Specific Gravity 1.015 (1.005-1.030); Urine Bilirubin NEGATIVE (Negative); Urine Blood Negative (Negative); Urine Clarity Clear (Clear); Urine Color Light-Yellow (Yellow); Urine Glucose NEGATIVE (Negative); Urine Protein NEGATIVE (Negative); Urine Urobilinogen Normal (Normal)
[2021-11-19] MEDS ORDERED: HALOPERIDOL LACT 5 MG/ML INJ IV PRN ×2 (05:29→19:35)
[2021-11-19] MEDS ORDERED: HALOPERIDOL LACT 5 MG/ML INJ ONE (05:40)
[2021-11-19] MEDS ORDERED: HOME MED 1 EA UNK (Lovastatin [Lovastatin] 20 MG Tablet) PO SCH (09:00)
[2021-11-19] MEDS ORDERED: QUETIAPINE 25 MG TAB PO SCH (09:00)
[2021-11-19] MEDS ORDERED: POTASSIUM CL SA 10 MEQ TAB PO ONE (09:00)
[2021-11-19] MEDS: ATORVASTATIN 10 MG TAB PO SCH (10:28)
[2021-11-19] MEDS: HALOPERIDOL LACT 5 MG/ML INJ IM PRN ×2 (11:30→18:59)
--- NOTE | 2021-11-19 12:26 | P.PN ---
Subjective Date of Service: 11/19/21 Primary Care Provider: Bacilio Chief Complaint: AMS Patient is confused but has not been aggressive since this morning. Nursing staff reports he was aggressive overnight. Physical Examination - Vital Signs Temperature: 97.5 F Blood Pressure: 115/75 Pulse: 88 Respirations: 19 Pulse Ox (%): 99 - Studies Laboratory Data (last 24 hrs) 11/18/21 17:40: Sodium 139, Potassium 3.7, BUN 23 H, Creatinine 0.80, Glucose 129 H 11/18/21 17:40: WBC 10.60, Hgb 13.8, Hct 42.1, Plt Count 433 H 11/18/21 15:38: Sodium Cancelled, Potassium Cancelled, BUN Cancelled, Creatinine Cancelled, Glucose Cancelled 11/18/21 15:38: WBC Cancelled, Hgb Cancelled, Hct Cancelled, Plt Count Cancelled Assessment And Plan - Current Problems (Diagnosis) (1) Dementia with behavioral disturbance Current Visit: Yes Status: Acute (2) Hyperlipidemia Current Visit: Yes Status: Chronic Qualifiers: Hyperlipidemia type: unspecified Qualified Code(s): E78.5 - Hyperlipidemia, unspecified (3) Hypertension Current Visit: Yes Status: Chronic Qualifiers: Hypertension type: primary hypertension Qualified Code(s): I10 - Essential (primary) hypertension - Plan Physical Exam General: Awake, confused, In no apparent distress Neck: Supple, Without JVD. Respiratory: Clear to auscultation bilaterally, Normal air movement Cardiovascular: Regular rate/rhythm, Normal S1 S2 Gastrointestinal: Normal bowel sounds, No tenderness Musculoskeletal: No tenderness Integumentary: No rashes Neurological: Normal speech, Normal strength at 5/5 x4 extr, unsteady gait. Plan: Spouse reports patient has been noncompliant with his Seroquel. No inciting event identified to explain his delirium. Behavior likely related to dementia with sundowning. Seroquel changed to Risperdal at bedtime for its nonsedating effect. Haldol IV as needed for agitation. Monitor and optimize electrolytes. Diet as tolerated. Family are requesting for long-term care placement. Social service team consulted to assist with disposition
--- NOTE | 2021-11-19 12:48 | EKG ---
Test Date: 2021-11-18 Test Time: 19:40:09 Account Development Representative: MEASUREMENT RESULTS: Intervals: Rate: 72 ND: 146 QRSD: 84 QT: 386 QTc: 422 [place]: P: 69 ND: 146 QRS: -7 T: 39 INTERPRETIVE STATEMENTS: Sinus rhythm with occasional premature ventricular complexes and premature atrial complexes Otherwise normal ECG Compared to ECG 12/10/2020 11:54:14 Atrial premature complex(es) now present Ventricular premature complex(es) now present Electronically Signed On 11-19-21 12:47:49 CDT by Eric Gold
[2021-11-19] MEDS ORDERED: RISPERIDONE 1 MG TABLET PO SCH (21:00)
[2021-11-19] MEDS ORDERED: HALOPERIDOL LACT 5 MG/ML INJ IM PRN (21:25)
[2021-11-19] MEDS: ESZOPICLONE 1 MG TAB PO PRN (23:59)
[2021-11-20 04:31] LABS: Potassium 3.7 mmol/L (3.5-5.1)
[2021-11-20] MEDS ORDERED: WATER FOR INJECTION,STERILE 5 ML ONE (07:38)
[2021-11-20] MEDS: ATORVASTATIN 10 MG TAB PO SCH (08:28)
[2021-11-20] MEDS ORDERED: POTASSIUM CL SA 10 MEQ TAB PO ONE (09:00)
[2021-11-20] MEDS: ZIPRASIDONE MESYLA 20 MG/VIAL IM PRN ×2 (10:04→18:04)
[2021-11-20] MEDS: RISPERIDONE 1 MG TABLET PO SCH ×2 (10:09→20:53)
--- NOTE | 2021-11-20 14:25 | P.PN ---
Subjective Date of Service: 11/20/21 Primary Care Provider: Bacilio Chief Complaint: AMS Nursing staff report patient was quite agitated last night and received multiple doses of neuroleptics. He was calm this morning but very confused. Physical Examination - Vital Signs Temperature: 97.0 F Blood Pressure: 168/90 Pulse: 110 Respirations: 20 Pulse Ox (%): 98 Assessment And Plan - Current Problems (Diagnosis) (1) Dementia with behavioral disturbance Current Visit: Yes Status: Acute (2) Hyperlipidemia Current Visit: Yes Status: Chronic Qualifiers: Hyperlipidemia type: unspecified Qualified Code(s): E78.5 - Hyperlipidemia, unspecified (3) Hypertension Current Visit: Yes Status: Chronic Qualifiers: Hypertension type: primary hypertension Qualified Code(s): I10 - Essential (primary) hypertension - Plan Physical Exam General: Awake, confused, In no apparent distress Neck: Supple, Without JVD. Respiratory: Clear to auscultation bilaterally, Normal air movement Cardiovascular: Regular rate/rhythm, Normal S1 S2 Gastrointestinal: Normal bowel sounds, No tenderness Musculoskeletal: No tenderness Integumentary: No rashes Neurological: Normal speech, Normal strength at 5/5 x4 extr, unsteady gait. Plan: No inciting event identified to explain his delirium. Behavior likely related to dementia with sundowning. He was on Seroquel Seroquel which is changed to Risperdal. Increase Risperdal to 1 mg twice daily. Haldol IV as needed for agitation. Monitor and optimize electrolytes. Diet as tolerated. Family are requesting for long-term care placement. [place] request psychiatry evaluation before he will be accepted to long-term care. [facility] contacted to evaluate patient. Social service team assisting with LTC placement.
[2021-11-20] MEDS: WATER FOR INJ,STERILE 10 ML IM PRN (18:05)
[2021-11-20] MEDS ORDERED: LORazepam 2 MG/ML VIAL IV STA (21:14)
[2021-11-20] MEDS ORDERED: LORazepam 2 MG/ML VIAL ONE (21:27)
[2021-11-20] MEDS: ESZOPICLONE 1 MG TAB PO PRN (22:26)
[2021-11-21 06:40] LABS: Magnesium 2.3 mg/dL (1.8-2.4); Potassium 4.1 mmol/L (3.5-5.1)
[2021-11-21] MEDS: ZIPRASIDONE MESYLA 20 MG/VIAL IM PRN ×2 (07:43→13:02)
[2021-11-21] MEDS: WATER FOR INJ,STERILE 10 ML IM PRN ×2 (07:43→13:02)
[2021-11-21] MEDS: RISPERIDONE 1 MG TABLET PO SCH ×2 (07:44→22:25)
[2021-11-21] MEDS: ATORVASTATIN 10 MG TAB PO SCH (07:44)
--- NOTE | 2021-11-21 11:55 | P.PN ---
Subjective Date of Service: 11/21/21 Primary Care Provider: Bacilio Chief Complaint: AMS Spouse stated patient's agitation was better last night though she had to be by his bedside the overnight. He appeared calm this morning. He is confused. Physical Examination - Vital Signs Temperature: 98.0 F Blood Pressure: 136/76 Pulse: 54 Respirations: 18 Pulse Ox (%): 95 Assessment And Plan - Current Problems (Diagnosis) (1) Dementia with behavioral disturbance Current Visit: Yes Status: Acute (2) Hyperlipidemia Current Visit: Yes Status: Chronic Qualifiers: Hyperlipidemia type: unspecified Qualified Code(s): E78.5 - Hyperlipidemia, unspecified (3) Hypertension Current Visit: Yes Status: Chronic Qualifiers: Hypertension type: primary hypertension Qualified Code(s): I10 - Essential (primary) hypertension - Plan Physical Exam General: Awake, confused, In no apparent distress Neck: Supple, Without JVD. Respiratory: Clear to auscultation bilaterally, Normal air movement Cardiovascular: Regular rate/rhythm, Normal S1 S2 Gastrointestinal: Normal bowel sounds, No tenderness Musculoskeletal: No tenderness Integumentary: No rashes Neurological: Normal speech, Normal strength at 5/5 x4 extr, unsteady gait. Plan: Behavior likely related to dementia with sundowning. He was on Seroquel which he was noncompliant to because of sedation. Seroquel which is changed to Risperdal. Increase Risperdal to 1 mg twice daily which is controlling his agitation better. Geodon IV as needed for agitation. Monitor and optimize electrolytes. Diet as tolerated. Family are requesting for long-term care placement. [place] request psychiatry evaluation before he will be accepted to long-term care. [facility] will not evaluate because patient is not suicidal or homicidal. Neurology consulted to assist with management. Social service team assisting with LTC placement.
[2021-11-21] MEDS ORDERED: LORazepam 2 MG/ML VIAL IV ONE (13:45)
--- NOTE | 2021-11-21 15:16 | RAD REPORT ---
EXAM DESCRIPTION: CT - Head Brain Wo Cont - 11/21/2021 2:10 pm CLINICAL HISTORY: Alteration of awareness/confusion COMPARISON: 2019 TECHNIQUE: Computed axial tomography of the head was obtained. IV contrast was not requested. All CT scans are performed using dose optimization technique as appropriate and may include automated exposure control or mA/KV adjustment according to patient size. FINDINGS: An intracranial bleed is not seen . Mild dilatation of the fourth, third and lateral ventricles has progressed mildly No extra-axial fluid collection is noted. Small low-density area right occipital lobe probably old infarct. Mild low-density areas within periventricular, deep and subcortical white matter likely represent isc hemic changes secondary to small vessel disease. Fluid within the sinuses/ mastoids is not seen. IMPRESSION: Mild dilatation of the ventricles which has mildly progressed since 2019. This probably is related to cerebral atrophy. Normal pressure hydrocephalus is considered less likely and should be correlated clinically
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
[2021-11-21] MEDS: ESZOPICLONE 1 MG TAB PO PRN (22:24)
[2021-11-22] MEDS: RISPERIDONE 1 MG TABLET PO SCH ×2 (08:23→20:40)
[2021-11-22] MEDS: ATORVASTATIN 10 MG TAB PO SCH (08:23)
[2021-11-22] MEDS: D5 0.9 NS 1,000 ML IV SCH ×2 (09:20→20:45)
--- NOTE | 2021-11-22 13:19 | P.PN ---
Subjective Date of Service: 11/22/21 Primary Care Provider: Bacilio Chief Complaint: AMS Less agitation reported. Patient is more calm as long as his spouse is around him. Nurse reports he has difficulty with swallowing today Patient remain confused. Physical Examination - Vital Signs Temperature: 98.1 F Blood Pressure: 123/74 Pulse: 98 Respirations: 18 Pulse Ox (%): 95 Assessment And Plan - Current Problems (Diagnosis) (1) Dementia with behavioral disturbance Current Visit: Yes Status: Acute (2) Hyperlipidemia Current Visit: Yes Status: Chronic Qualifiers: Hyperlipidemia type: unspecified Qualified Code(s): E78.5 - Hyperlipidemia, unspecified (3) Hypertension Current Visit: Yes Status: Chronic Qualifiers: Hypertension type: primary hypertension Qualified Code(s): I10 - Essential (primary) hypertension - Plan Physical Exam General: Awake, confused, In no apparent distress Neck: Supple, Without JVD. Respiratory: Clear to auscultation bilaterally, Normal air movement Cardiovascular: Regular rate/rhythm, Normal S1 S2 Gastrointestinal: Normal bowel sounds, No tenderness Musculoskeletal: No tenderness Integumentary: No rashes Neurological: Normal speech, Normal strength at 5/5 x4 extr, unsteady gait. Plan: Aggressive behavior and agitation likely related to dementia with sundowning. He was on Seroquel which he was noncompliant to because of sedation. Seroquel which is changed to Risperdal. Increase Risperdal to 1 mg twice daily which is controlling his agitation better. Patient also getting Geodon IV as needed for agitation. New report of dysphagia. Bedside swallow evaluation Trial of pured and soft to see if he will tolerate Swallow evaluation. May need MBS. IV fluid maintenance with D5 NS Monitor and optimize electrolytes. Spouse requested DNR based on patient wishes. Neurology input appreciated. CT head results reviewed and reporting possible NPH. Case discussed with Dr. Carcamo who recommend high-volume lumbar puncture under fluoroscopic guidance. Patient will probably need to be sedated for the procedure. Family are requesting for long-term care placement. [facility] request psychiatry eval uation before he will be accepted to long-term care. [facility] will not evaluate because patient is not suicidal or homicidal. Psych to evaluate patient on Wednesday or Wednesday next week. Social service team assisting with LTC placement.
[2021-11-22] MEDS: ESZOPICLONE 1 MG TAB PO PRN (23:59)
[2021-11-23 05:54] LABS: Absolute Lymphocytes (CBC) 1.2 K/uL (0.7-4.9); Hematocrit 41.8 % (39.6-49.0); Lymphocytes % 7.2 % (15.3-44.8); MCV 84.9 fL (80-100); MPV 6.4 fL (7.6-11.3); RBC Red Blood Cell Count 4.92 M/uL (4.33-5.43)
[2021-11-23 06:08] LABS: Potassium 3.9 mmol/L (3.5-5.1)
[2021-11-23] MEDS ORDERED: KCL 20 MEQ/100 mL IVPB 20 MEQ/100 ML BAG IV SCH (06:12)
[2021-11-23] MEDS: RISPERIDONE 1 MG TABLET PO SCH ×2 (08:22→21:54)
[2021-11-23] MEDS: ATORVASTATIN 10 MG TAB PO SCH (08:22)
[2021-11-23] MEDS: D5 0.9 NS 1,000 ML IV SCH ×2 (08:22→23:51)
--- NOTE | 2021-11-23 10:47 | RAD REPORT ---
EXAM DESCRIPTION: RAD - Chest Single View - 11/23/2021 10:20 am CLINICAL HISTORY: Aspiration pneumonia Chest pain. COMPARISON: Chest Single View dated 02/12/2020 FINDINGS: Portable technique limits examination quality. Mild interstitial prominence bilaterally could indicate mild infection or pulmonary edema. The heart is normal in size. No displaced fractures.
--- NOTE | 2021-11-23 14:06 | P.PN ---
Subjective Date of Service: 11/23/21 Primary Care Provider: Bacilio Chief Complaint: AMS Patient looks somnolent. No agitation overnight. He is currently n.p.o. White cell count trended up. No fever. Physical Examination - Vital Signs Temperature: 99 F Blood Pressure: 128/79 Pulse: 100 Respirations: 20 Pulse Ox (%): 96 Assessment And Plan - Current Problems (Diagnosis) (1) Dementia with behavioral disturbance Current Visit: Yes Status: Acute (2) Hyperlipidemia Current Visit: Yes Status: Chronic Qualifiers: Hyperlipidemia type: unspecified Qualified Code(s): E78.5 - Hyperlipidemia, unspecified (3) Hypertension Current Visit: Yes Status: Chronic Qualifiers: Hypertension type: primary hypertension Qualified Code(s): I10 - Essential (primary) hypertension (4) Leukocytosis Current Visit: Yes Status: Acute - Plan Physical Exam General: Awake, confused, In no apparent distress Neck: Supple, Without JVD. Respiratory: Clear to auscultation bilaterally, Normal air movement Cardiovascular: Regular rate/rhythm, Normal S1 S2 Gastrointestinal: Normal bowel sounds, No tenderness Musculoskeletal: No tenderness Integumentary: No rashes Neurological: Normal speech, Normal strength at 5/5 x4 extr, unsteady gait. Plan: Aggressive behavior and agitation likely related to dementia with sundowning. He was on Seroquel which he was noncompliant to because of sedation. Seroquel which is changed to Risperdal. Increase Risperdal to 1 mg twice daily which is controlling his agitation better. New report of dysphagia. Swallow evaluation. May need MBS. IV fluid maintenance with D5 NS. Considering NG tube feeding. wants to hold off on NG tube feeding for now. Reduced Risperdal dose and discontinued Geodon due to somnolence Monitor and optimize electrolytes. Patient seen by neurology CT head results reviewed and reporting possible NPH. Case discussed with Dr. Rodriguez who recommend high-volume lumbar puncture under fluoroscopic guidance. Patient will probably need to be sedated for the procedure. We will order LP under fluoroscopy for tomorrow. Ordered blood culture, urinalysis with reflex culture to evaluate leukocytosis. Chest x-ray shows mild interstitial prominence. We will start antibiotics for now. Family are requesting for long-term care placement. [place] request psychiatry evaluation before he will be accepted to long-term care. [facility] will not evaluate because patient is not suicidal or homicidal. Psych to evaluate patient on Wednesday or Wednesday next week. Social service team assisting with LTC placement.
[2021-11-23] MEDS: PIPER TAZO 3.375 GM in NA CHLORIDE 0.9% 100 ML IV SCH (16:12)
[2021-11-23] MEDS ORDERED: METOPROLOL TARTRATE 5 MG/5 ML INJ IV STA (16:34)
[2021-11-23] MEDS: HALOPERIDOL LACT 5 MG/ML INJ IV PRN (18:34)
[2021-11-23] MEDS: LOVASTATIN 20 MG PO SCH (21:54)
[2021-11-23] MEDS: ESZOPICLONE 1 MG TAB PO PRN (23:51)
[2021-11-24] MEDS: PIPER TAZO 3.375 GM in NA CHLORIDE 0.9% 100 ML IV SCH ×3 (00:30→16:21)
[2021-11-24] MEDS: D5 0.9 NS 1,000 ML IV SCH ×2 (00:32→16:21)
[2021-11-24 01:19] LABS: Specific Gravity 1.023 (1.005-1.030); Urine Bilirubin NEGATIVE (Negative); Urine Blood 1+ (Negative); Urine Clarity Clear (Clear); Urine Color Light-Yellow (Yellow); Urine Glucose NEGATIVE (Negative); Urine Mucus Slight /HPF (None Seen); Urine Protein 1+ (Negative); Urine Urobilinogen Normal (Normal); Urine pH 6.5 (5.0-7.0)
[2021-11-24 01:20] LABS: Urine WBC Clump Rare /HPF (None Seen)
--- NOTE | 2021-11-24 08:55 | EEG ---
CHART: [id number] TEST ID#: [id number] DATE OF STUDY: 11-20-2021 THE EEG WAS RECORDED PORTABLE IN THE PATIENT'S ROOM ON A 17 CHANNEL MACHINE. ELECTRODES WERE APPLIED IN THE USUAL MANNER USING THE INTERNATIONAL 10-20 SYSTEM. THE WAKING BACKGROUND RHYTHM IN THIS RECORD CONSISTS OF POORLY DEVELOPED AND POORLY ORGANIZED WAVES OF 4-6 HZ., IN A WIDE DISTRIBUTION WHICH DO NOT ATTENUATE NORMALLY WITH EYE OPENING. MODERATE VOLTAGE 1.5-3 HZ ACTIVITY IS EXPRESSED IN THE FRONTAL REGION. THERE ARE NO FOCAL OR LATERALIZING FEATURES. NO EPILEPTIFORM ACTIVITY APPEARS. SLEEP DID NOT OCCUR. HYPERVENTILATION WAS NOT PERFORMED. PHOTIC STIMULATION PRODUCED NO DRIVING BILATERALLY. IMPRESSION: THIS IS A MODERATELY ABNORMAL ROUTINE EEG DUE TO A MODERATELY SLOW BACKGROUND. THIS IS A NON-SPECIFIC FINDING INDICATING THE PRESENCE OF A MODERATE DIFFUSE DISTURBANCE IN CEREBRAL FUNCTION. NO EPILEPTIFORM ACTIVITY OCCURRED DURING THIS STUDY.
[2021-11-24 10:47] LABS: Absolute Lymphocytes (CBC) 1.4 K/uL (0.7-4.9)
[2021-11-24 10:52] LABS: Hematocrit 45.8 % (39.6-49.0); Lymphocytes % 7.6 % (15.3-44.8); MCV 86.1 fL (80-100); RBC Red Blood Cell Count 5.32 M/uL (4.33-5.43)
[2021-11-24 12:25] LABS: Blood Morphology Comment NOT SEEN (NOT SEEN); Platelet Estimate ADEQ; Platelets, Giant FEW; White Blood Cell Scan OK (OK)
[2021-11-24] MEDS: HALOPERIDOL LACT 5 MG/ML INJ IV PRN (12:27)
[2021-11-24] MEDS ORDERED: HALOPERIDOL LACT 5 MG/ML INJ IV STA (13:00)
--- NOTE | 2021-11-24 14:08 | P.PN ---
Subjective Date of Service: 11/24/21 Primary Care Provider: Bacilio Chief Complaint: AMS Patient to be less somnolent compared to yesterday. He answered a few questions appropriately and was able to tell me he has pain in his left knee. He is currently n.p.o. White cell count trending up. No fever. Patient was straight cath yesterday. No urine retention reported. Physical Examination - Vital Signs Temperature: 98.2 F Blood Pressure: 150/97 Pulse: 113 Respirations: 16 Pulse Ox (%): 97 Assessment And Plan - Current Problems (Diagnosis) (1) Dementia with behavioral disturbance Current Visit: Yes Status: Acute (2) Hyperlipidemia Current Visit: Yes Status: Chronic Qualifiers: Hyperlipidemia type: unspecified Qualified Code(s): E78.5 - Hyperlipidemia, unspecified (3) Hypertension Current Visit: Yes Status: Chronic Qualifiers: Hypertension type: primary hypertension Qualified Code(s): I10 - Essential (primary) hypertension (4) Leukocytosis Current Visit: Yes Status: Acute - Plan Physical Exam General: Awake, confused, In no apparent distress Neck: Supple, Without JVD. Respiratory: Clear to auscultation bilaterally, Normal air movement Cardiovascular: Regular rate/rhythm, Normal S1 S2 Gastrointestinal: Normal bowel sounds, No tenderness Musculoskeletal: Tenderness-left knee. No swelling Integumentary: No rashes Neurological: Normal speech, Normal strength at 5/5 x4 extr, unsteady gait. Plan: Aggressive behavior and agitation likely related to dementia with . He was on Seroquel which he was noncompliant to because of sedation. Seroquel which is changed to Risperdal. Increase Risperdal to 1 mg twice daily which is controlling his agitation but patient became more somnolent. Risperdal scaled back to 0.5 mg at bedtime. Haldol IV available for intermittent agitation. Geodon discontinued. New report of dysphagia. Swallow evaluation. May need MBS. Keep n.p.o. until comprehensive swallow evaluation. Speech therapy consulted. IV fluid maintenance with D5 NS. Considering NG tube feeding. wants to hold off on NG tube feeding for now. Monitor and optimize electrolytes. Patient seen by neurology CT head results reviewed and reporting possible NPH. Case discussed with Dr. Rodriguez who recommend high-volume lumbar puncture under fluoroscopic guidance. Patient's spouse report paradoxical reaction to benzodiazepine with hyperactivity. We will avoid Ativan and use Haldol for mild sedation prior to the LP. Patient with leukocytosis. Blood culture has yielded no growth, UA is negative for UTI Chest x-ray shows mild interstitial prominence which could be pneumonia. Continue antibiotics. Neurology to follow. Family are requesting for long-term care placement. [place] request psychiatry evaluation before he will be accepted to long-term care. [facility] will not evaluate because patient is not suicidal or homicidal. Psych consulted to evaluate patient this week. Social service team assisting with LTC placement.
[2021-11-24 16:21] LABS: CSF Glucose 72 mg/dL (40-70)
[2021-11-24 18:47] LABS: Appearance CLEAR (CLEAR); Body Fluid Source CSF; Body Fluid WBC 3 /mm^3; Color of fluid Colorless (COLORLESS)
[2021-11-24 18:49] LABS: Appearance CLEAR (CLEAR); Body Fluid Source CSF; Body Fluid WBC 5 /mm^3; Color of fluid Colorless (COLORLESS); Fluid Total Volume 25 ml
[2021-11-24] MEDS: LOVASTATIN 20 MG PO SCH (21:00)
[2021-11-24] MEDS: RISPERIDONE 1 MG TABLET PO SCH (22:36)
[2021-11-25] MEDS: PIPER TAZO 3.375 GM in NA CHLORIDE 0.9% 100 ML IV SCH ×3 (00:43→16:29)
[2021-11-25] MEDS ORDERED: PIPERACIL/TAZO 3.375 GM VIAL IV ONE (00:50)
[2021-11-25] MEDS: HALOPERIDOL LACT 5 MG/ML INJ IV PRN (00:53)
--- NOTE | 2021-11-25 02:19 | PN ---
Subjective: The patient was off to lumbar puncture at the time of my visit. His was in the antonette m. She notes he has not changed significantly in terms of his alertness, interaction, swallowing and movements. Still has some difficulty with swallowing, has had dysphagia and stiffness of movement o f arms and legs. Objective: Vital Signs: Blood pressure 139/79, pulse 100, respiratory rate 16, temperature 99.1, ox ygen saturation 97%. Laboratory Studies: Today, white blood cell count elevated to 18.5, neutrophils 81.0, hemoglobin and hematocrit are normal. His electrolytes are unremarkable except chloride slightly elevated at 108, BUN slightly elevated at 22. Normal calcium, magnesium, and creatinine. Urinalysis yesterday showed 11 to 20 red blood cells, 1+ protein, 1+ blood. His lumbar puncture did show glucose elevated to 72 , creatinine slightly elevated at 53. It was clear, colorless, non-xanthochromic. VDRL pending. Be ta-amyloid evaluation is pending. Chest x-ray shows mild interstitial prominence bilaterally, could indicate mild infection or pulmonary edema. Heart is normal in size. Head CT scan from the show ed mild dilatation of the ventricles, atrophy. However, normal-pressure hydrocephalus is considered less likely, but should be correlated clinically. He did have a lumbar puncture today and it should be of high volume and will be evaluated by physical therapy for his gait, coordination in addition to having his bladder function and cognitive function evaluated. Assessment: Mr. Al is a 66-year-old patient with dementia with psychotic features, gait instabilit y, difficulty with swallowing and speech and likely bladder problems, possibly related to normal-pres sure hydrocephalus along with a vascular dementia. He does appear to have a systemic infection. Plan: 1.Patient may be ambulated after his high-volume lumbar puncture to look for improvement in gait. A lso assess for improvement in bladder function and cognitive functioning. 2.Continue with supportive care and treatment of possible eye infection, which potentially may be ur inary tract infection versus pneumonia. He is on piperacillin/tazobactam by primary care physician. Please consider also some of his movement related issues may be due neuroleptic medications such as antipsychotics. LB/MODL Voice ID: [id number] Report ID: [id number]
[2021-11-25] MEDS ORDERED: FAMOTIDINE 20 MG/2 ML VIAL IV ONE (04:35)
[2021-11-25] MEDS: D5 0.9 NS 1,000 ML IV SCH ×2 (04:57→16:30)
[2021-11-25 05:40] LABS: Absolute Lymphocytes (CBC) 1.2 K/uL (0.7-4.9); Hematocrit 43.2 % (39.6-49.0); Lymphocytes % 7.1 % (15.3-44.8); RBC Red Blood Cell Count 5.09 M/uL (4.33-5.43)
[2021-11-25 05:52] LABS: Potassium 4.2 mmol/L (3.5-5.1)
[2021-11-25] MEDS ORDERED: HALOPERIDOL LACT 5 MG/ML INJ IV PRN (09:54)
--- NOTE | 2021-11-25 12:44 | RAD REPORT ---
EXAM DESCRIPTION: RAD - Lumbar Puncture For Dx - 11/24/2021 3:18 pm CLINICAL HISTORY: Normal pressure hydrocephalus Headache COMPARISON: No comparisons TECHNIQUE: The procedure, risks and alternatives to the procedure were discussed with the patient in detail. After answering all questions, both oral and written consent were obtained. Time-out procedu re was performed. The patient was placed in an oblique prone position on the fluoroscopic table. The skin of the lower back was prepped and draped in the usual sterile fashion. After anesthetizing the skin and deeper sof t tissues with 1% lidocaine, a 22 gauge needle was advanced into the thecal sac at the L5-S1 level. Small volume of clear fluid was obtained for lab studies. Following this, high volume 25 cc of fluid was obtained. At the conclusion of the procedure the needle was withdrawn and a sterile bandage placed over the pun cture site. The patient tolerated the procedure well without immediate complications. Total fluoro time: 0.7 minutes Images obtained: 2 IMPRESSION: Successful fluoroscopic guided lumbar puncture. All obtained fluid was sent to the lab f or studies requested by the referring physician. High volume was removed of 25 cc of CSF.
--- NOTE | 2021-11-25 15:32 | P.PN ---
Subjective Date of Service: 11/25/21 Primary Care Provider: Bacilio Chief Complaint: AMS Subjective: Improving (Patient had significant sympatomatic improvement after therapeutic LP yesterday. states he was more lucid and properly converse. Seems to have relapsed again this morning. He couldn't recognize his .) Physical Examination - Vital Signs Temperature: 97.6 F Blood Pressure: 143/99 Pulse: 108 Respirations: 19 Pulse Ox (%): 93 - Physical Exam General: In no apparent distress, Confused HEENT: Atraumatic, Normocephalic Respiratory: Clear to auscultation bilaterally, Normal air movement Cardiovascular: No edema, Normal pulses, Regular rate/rhythm, Normal S1 S2 Gastrointestinal: Soft and benign, Non-distended Musculoskeletal: No clubbing, No swelling, No contractures, No erythema Assessment And Plan - Current Problems (Diagnosis) (1) Dementia with behavioral disturbance Current Visit: Yes Status: Acute (2) Leukocytosis Current Visit: Yes Status: Acute (3) Advancing dementia Current Visit: Yes Status: Chronic (4) Hyperlipidemia Current Visit: Yes Status: Chronic Qualifiers: Hyperlipidemia type: unspecified Qualified Code(s): E78.5 - Hyperlipidemia, unspecified (5) Hypertension Current Visit: Yes Status: Chronic Qualifiers: Hypertension type: primary hypertension Qualified Code(s): I10 - Essential (primary) hypertension - Plan Assessment Patient is a 66 year old male who was brought in for increasingly worsening altered mental status. CT head showed cerebral atrophy and possibly NPH, although less likely per CT. He underwent LP on 11/24 and had significant improvement of his symptoms. He seems to have relapsed this morning. Acute encephalopathy NPH - as per CT HEAD Possible early onset dementia PLAN: He may need a repeat LP given past success Avoid benzodiazepines, consider haldol instead for behavior disturbance Start delirium protocol: allow sunlight in during the day, encourage re- orientation, minimize sedation Continue SQUEEGEE TENDER for dysphagia IV fluid maintenance with D5 NS. Will continue to monitor I have discussed with Psychiatry. He is not a good candidate for inpatient psych admission
[2021-11-25] MEDS: LOVASTATIN 20 MG PO SCH (19:49)
[2021-11-25] MEDS: RISPERIDONE 1 MG TABLET PO SCH (19:49)
[2021-11-26] MEDS: PIPER TAZO 3.375 GM in NA CHLORIDE 0.9% 100 ML IV SCH ×3 (01:28→16:57)
[2021-11-26] MEDS: D5 0.9 NS 1,000 ML IV SCH (05:44)
[2021-11-26 07:40] LABS: Absolute Lymphocytes (CBC) 0.8 K/uL (0.7-4.9); Lymphocytes % 5.1 % (15.3-44.8); MCV 84.3 fL (80-100); MPV 6.7 fL (7.6-11.3); RBC Red Blood Cell Count 4.63 M/uL (4.33-5.43)
[2021-11-26] MEDS: SERTRALINE HCL 50 MG TAB PO SCH (08:58)
[2021-11-26] MEDS ORDERED: LABETALOL 20 MG/4ML SYRINGE IV PRN (10:29)
--- NOTE | 2021-11-26 10:36 | P.PN ---
Subjective Date of Service: 11/26/21 Primary Care Provider: Bacilio Chief Complaint: AMS Subjective: No new changes (Patient appears calm this morning. No drastic change in mental status. He is alert and oriented x1.) Physical Examination - Vital Signs Temperature: 99.4 F Blood Pressure: 187/130 Pulse: 126 Respirations: 18 Pulse Ox (%): 90 - Physical Exam General: In no apparent distress, Cooperative HEENT: Atraumatic, Normocephalic Respiratory: Clear to auscultation bilaterally, Normal air movement Cardiovascular: No edema, Normal pulses, Regular rate/rhythm, Normal S1 S2 Musculoskeletal: No clubbing, No swelling, No contractures, No erythema Neurological: Dementia Assessment And Plan - Current Problems (Diagnosis) (1) Dementia with behavioral disturbance Current Visit: Yes Status: Acute (2) Leukocytosis Current Visit: Yes Status: Acute (3) Advancing dementia Current Visit: Yes Status: Chronic (4) Hyperlipidemia Current Visit: Yes Status: Chronic Qualifiers: Hyperlipidemia type: unspecified Qualified Code(s): E78.5 - Hyperlipidemia, unspecified (5) Hypertension Current Visit: Yes Status: Chronic Qualifiers: Hypertension type: primary hypertension Qualified Code(s): I10 - Essential (primary) hypertension - Plan Assessment Patient is a 66 year old male who was brought in for increasingly worsening altered mental status. CT head showed cerebral atrophy and possibly NPH, although less likely per CT. He underwent LP on 11/24 and had significant improvement of his symptoms. He seems to have relapsed again. I have discussed this case with neurology. Dr. Rodriguez also agrees that he may benefit from another LP but this will need to be done in 1 or 2 weeks from the previous one. Acute encephalopathy NPH - as per CT HEAD Possible early onset dementia Dysphagia PLAN: Patient has been medically optimized at this time We will need to make plans to have another lumbar puncture after he has been discharge If we continue to get response, we may make a case for a shunt placement Patient was also seen by psychiatry. Medication adjusted to as needed Haldol. Avoid benzos due to paradoxical response Continue delirium protocol: allow sunlight in during the day, encourage re-or ientation, minimize sedation Continue SOLUTION MANAGER for dysphagia By the nurse the patient's food intake has been poor. We are transitioning patient to [facility] requested a hospice consult Patient is currently DNR. Patient would not have wanted want any aggressive measures including PEG tube placement
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
[2021-11-26] MEDS ORDERED: AA 4.25 %/D5W/ELECTROLYTES 2,000 ML, Lipids 20% 250 ML with MULTIVITAMINS INJ 10 ML IV SCH ×3 (18:00)
[2021-11-26] MEDS: LOVASTATIN 20 MG PO SCH (21:00)
[2021-11-26] MEDS: RISPERIDONE 1 MG TABLET PO SCH (22:48)
[2021-11-27] MEDS: PIPER TAZO 3.375 GM in NA CHLORIDE 0.9% 100 ML IV SCH ×2 (01:34→08:47)
[2021-11-27] MEDS: SERTRALINE HCL 50 MG TAB PO SCH (08:48)
[2021-11-27] MEDS: AMLODIPINE 10 MG TAB PO SCH (08:48)
[2021-11-27] MEDS ORDERED: SODIUM CHLORIDE 0.9% 10ML INJ IV PRN (08:49)
[2021-11-27] MEDS: PANTOPRAZOLE 40 MG INJ IVP SCH (09:02)
--- NOTE | 2021-11-27 14:28 | P.PN ---
Subjective Date of Service: 11/27/21 Primary Care Provider: Bacilio Chief Complaint: AMS Subjective: Other (He reports partial functional improvement. He is able to finish a third of his plate and drink a full cup of tea through a straw. I had a chance to speak with the patient's and the patient's sister today. Clinical updates were given) Physical Examination - Vital Signs Temperature: 97.6 F Blood Pressure: 165/75 Pulse: 70 Respirations: 18 Pulse Ox (%): 97 - Physical Exam General: In no apparent distress, Cooperative, Confused HEENT: Atraumatic, Normocephalic Respiratory: Clear to auscultation bilaterally, Normal air movement Cardiovascular: Normal pulses, Regular rate/rhythm, Normal S1 S2 Musculoskeletal: No clubbing, No swelling, No erythema Assessment And Plan - Current Problems (Diagnosis) (1) Dementia with behavioral disturbance Current Visit: Yes Status: Acute (2) Leukocytosis Current Visit: Yes Status: Acute (3) Advancing dementia Current Visit: Yes Status: Chronic (4) Hyperlipidemia Current Visit: Yes Status: Chronic Qualifiers: Hyperlipidemia type: unspecified Qualified Code(s): E78.5 - Hyperlipidemia, unspecified (5) Hypertension Current Visit: Yes Status: Chronic Qualifiers: Hypertension type: primary hypertension Qualified Code(s): I10 - Essential (primary) hypertension - Plan Assessment Patient is a 66 year old male who was brought in for increasingly worsening altered mental status. CT head showed cerebral atrophy and possibly NPH, although less likely per CT. He underwent LP on 11/24 and had significant improvement of his symptoms. He seems to have relapsed again. I have discussed this case with neurology. Dr. Rodriguez also agrees that he may benefit from another LP but this will need to be done in 1 or 2 weeks from the previous one. Acute encephalopathy NPH - as per CT HEAD Possible early onset dementia Dysphagia Hypertension PLAN: Hospice evaluated patient today. They will only be able to provide 12-hour coverage at home. With their currently working, this may not be a safe discharge He will benefit from placement. is trying to arrange transfer to [facility] From a medical standpoint, he will benefit from another lumbar puncture 1 to 2 weeks from November 24 If we continue to get response, we may make a case for a shunt placement Patient is medically optimized at this point Continue supportive care until discharge Avoid benzos due to paradoxical response. Psychiatry placed him on as needed Haldol. Continue delirium protocol: allow sunlight in during the day, encourage re- orientation, minimize sedation Continue SMT OPERATOR for dysphagia and cognitive deficit Patient is currently DNR. Patient would not have wanted want any aggressive measures including PEG tube placement Norvasc added today for uncontrolled hypertension
[2021-11-27] MEDS ORDERED: AA 4.25 %/D5W/ELECTROLYTES 2,000 ML IV SCH (17:00)
[2021-11-27] MEDS: RISPERIDONE 1 MG TABLET PO SCH (20:18)
[2021-11-27] MEDS: LOVASTATIN 20 MG PO SCH (20:21)
[2021-11-28] MEDS: PANTOPRAZOLE 40 MG INJ IVP SCH (09:34)
[2021-11-28] MEDS: AMLODIPINE 10 MG TAB PO SCH (09:35)
[2021-11-28] MEDS: SERTRALINE HCL 50 MG TAB PO SCH (09:35)
--- NOTE | 2021-11-28 12:31 | P.PN ---
Subjective Date of Service: 11/28/21 Primary Care Provider: Bacilio Chief Complaint: AMS No change in patient's condition he is nonverbal and eat and drink does not follow any commands Review of Systems is unable to be obtained Physical Examination - Vital Signs Temperature: 97.3 F Blood Pressure: 126/81 Pulse: 69 Respirations: 20 Pulse Ox (%): 94 - Physical Exam General: Alert, Other Respiratory: Normal air movement Cardiovascular: No edema, Regular rate/rhythm, Normal S1 S2 Assessment And Plan - Current Problems (Diagnosis) (1) Advancing dementia Current Visit: Yes Status: Chronic Plan: Patient has advanced dementia from his normal pressure hydrocephalus already had a lumbar puncture done evaluating for hospice care is nonverbal White count is mildly elevated no evidence of MASTER BARBER infection chronically elevated white count cultures are negative
[2021-11-28] MEDS: RISPERIDONE 1 MG TABLET PO SCH (20:21)
[2021-11-28] MEDS: LOVASTATIN 20 MG PO SCH (20:22)
[2021-11-28] MEDS: ENSURE ENLIVE 237 ML CAN PO SCH (20:22)
[2021-11-29] MEDS: AMLODIPINE 10 MG TAB PO SCH (07:49)
[2021-11-29] MEDS: SERTRALINE HCL 50 MG TAB PO SCH (07:49)
[2021-11-29] MEDS: ENSURE ENLIVE 237 ML CAN PO SCH ×2 (07:49→20:45)
--- NOTE | 2021-11-29 09:55 | P.PN ---
Subjective Date of Service: 11/29/21 Primary Care Provider: Bacilio Chief Complaint: Normal pressure hydrocephalus No change in patient's condition at the bedside patient is able to eat and drink Review of Systems is unable to be obtained Physical Examination - Vital Signs Temperature: 96.9 F Blood Pressure: 147/97 Pulse: 74 Respirations: 15 Pulse Ox (%): 96 - Physical Exam General: Unresponsive Respiratory: Clear to auscultation bilaterally Cardiovascular: No edema, Regular rate/rhythm Assessment And Plan - Current Problems (Diagnosis) (1) Advancing dementia Current Visit: Yes Status: Chronic Plan: Normal pressure hydrocephalus patient is eating and drinking physical therapy awaiting [facility] placement White count is mildly elevated declining will repeat
[2021-11-29 11:34] LABS: Hematocrit 44.7 % (39.6-49.0); MCV 85.2 fL (80-100); MPV 6.6 fL (7.6-11.3); RBC Red Blood Cell Count 5.24 M/uL (4.33-5.43)
[2021-11-29 11:49] LABS: Potassium 3.5 mmol/L (3.5-5.1)
[2021-11-29] MEDS: RISPERIDONE 1 MG TABLET PO SCH (20:44)
[2021-11-29] MEDS: LOVASTATIN 20 MG PO SCH (20:45)
[2021-11-30] MEDS: SERTRALINE HCL 50 MG TAB PO SCH (09:31)
[2021-11-30] MEDS: ENSURE ENLIVE 237 ML CAN PO SCH ×2 (09:31→20:22)
[2021-11-30] MEDS: AMLODIPINE 10 MG TAB PO SCH (09:31)
--- NOTE | 2021-11-30 09:37 | P.PN ---
Subjective Date of Service: 11/30/21 Primary Care Provider: Bacilio Chief Complaint: Normal pressure hydrocephalus Patient still experiences agitation still has significant dementia eating and drinking Review of Systems is unable to be obtained Physical Examination - Vital Signs Temperature: 98.0 F Blood Pressure: 150/80 Pulse: 99 Respirations: 20 Pulse Ox (%): 94 - Physical Exam General: Alert, Oriented x1 Respiratory: Clear to auscultation bilaterally, Diminished Cardiovascular: No edema, Regular rate/rhythm Assessment And Plan - Current Problems (Diagnosis) (1) Advancing dementia Current Visit: Yes Status: Chronic Plan: No change in patient's condition awaiting further disposition eating and drinking does have episodes of agitation worse at night labs and medications are reviewed
[2021-11-30] MEDS: RISPERIDONE 1 MG TABLET PO SCH (20:22)
[2021-11-30] MEDS: LOVASTATIN 20 MG PO SCH (20:40)
[2021-12-01] MEDS ORDERED: ALPRAZOLAM 0.25 MG TABLET PO ONE (01:52)
[2021-12-01] MEDS ORDERED: HALOPERIDOL LACT 5 MG/ML INJ IV ONE (02:13)
[2021-12-01] MEDS ORDERED: HALOPERIDOL LACT 5 MG/ML INJ ONE (02:25)
[2021-12-01] MEDS: SERTRALINE HCL 50 MG TAB PO SCH (08:27)
[2021-12-01] MEDS: AMLODIPINE 10 MG TAB PO SCH (08:28)
[2021-12-01] MEDS: ENSURE ENLIVE 237 ML CAN PO SCH ×2 (08:28→21:00)
--- NOTE | 2021-12-01 14:03 | P.PN ---
Subjective Date of Service: 12/01/21 Primary Care Provider: Bacilio Chief Complaint: Normal pressure hydrocephalus Patient has been intermittently agitated. Agitation is worse at night. He becomes more calm during the day. Physical Examination - Vital Signs Temperature: 97.4 F Blood Pressure: 120/85 Pulse: 78 Respirations: 18 Pulse Ox (%): 98 Assessment And Plan - Current Problems (Diagnosis) (1) Dementia with behavioral disturbance Current Visit: Yes Status: Acute (2) Hyperlipidemia Current Visit: Yes Status: Chronic Qualifiers: Hyperlipidemia type: unspecified Qualified Code(s): E78.5 - Hyperlipidemia, unspecified (3) Hypertension Current Visit: Yes Status: Chronic Qualifiers: Hypertension type: primary hypertension Qualified Code(s): I10 - Essential (primary) hypertension (4) Leukocytosis Current Visit: Yes Status: Acute - Plan Physical Exam General: Awake, confused. Neck: Supple, Without JVD. Respiratory: Clear to auscultation bilaterally, Normal air movement Cardiovascular: Regular rate/rhythm, Normal S1 S2 Gastrointestinal: Normal bowel sounds, No tenderness Musculoskeletal: No swelling Integumentary: No rashes Neurological: Normal strength at 5/5 x4 extr, unsteady gait. Plan: Aggressive behavior and agitation likely related to dementia with sundowning. He was on Seroquel which he was noncompliant to because of sedation. Seroquel which is changed to Risperdal. Increase Risperdal to 1 mg twice daily which is controlling his agitation but patient became more somnolent. Titrating Risperdal to control agitation. Haldol IV available for intermittent agitation. Geodon discontinued. Patient currently tolerating mechanical soft diet. Monitor and optimize electrolytes. Patient seen by neurology. Normal pressure hydrocephalus suspected. Status post high-volume lumbar puncture-no major changes in his mental status after the LP. Patient's spouse report paradoxical reaction to benzodiazepine with hyperactivity. We will avoid Ativan and use Haldol for agitation Patient with leukocytosis. Blood culture has yielded no growth, UA is negative for UTI Social service team assisting with LTC placement. Patient is waiting for placement.
[2021-12-01] MEDS: LOVASTATIN 20 MG PO SCH (21:00)
[2021-12-01] MEDS: RISPERIDONE 1 MG TABLET PO SCH (23:55)
[2021-12-02] MEDS ORDERED: DIPHENHYDRAMINE 50 MG/ML VIAL IV ONE (01:11)
[2021-12-02 04:01] LABS: Absolute Lymphocytes (CBC) 1.8 K/uL (0.7-4.9); Hematocrit 44.6 % (39.6-49.0); Lymphocytes % 13.4 % (15.3-44.8); MCV 84.2 fL (80-100); MPV 6.7 fL (7.6-11.3)
[2021-12-02 04:02] LABS: Potassium 3.9 mmol/L (3.5-5.1)
[2021-12-02 06:51] LABS: Magnesium 2.1 mg/dL (1.8-2.4)
[2021-12-02] MEDS: SERTRALINE HCL 50 MG TAB PO SCH (08:55)
[2021-12-02] MEDS: AMLODIPINE 10 MG TAB PO SCH (08:55)
[2021-12-02] MEDS: ENSURE ENLIVE 237 ML CAN PO SCH ×2 (08:56→21:00)
[2021-12-02] MEDS ORDERED: KCL 20 MEQ/100 mL IVPB 20 MEQ/100 ML BAG IV SCH (09:00)
--- NOTE | 2021-12-02 13:47 | P.PN ---
Subjective Date of Service: 12/02/21 Primary Care Provider: Bacilio Chief Complaint: Normal pressure hydrocephalus No changes from yesterday. Patient tolerating his meals. Physical Examination - Vital Signs Temperature: 97.1 F Blood Pressure: 120/76 Pulse: 80 Respirations: 14 Pulse Ox (%): 99 Assessment And Plan - Current Problems (Diagnosis) (1) Dementia with behavioral disturbance Current Visit: Yes Status: Acute (2) Hyperlipidemia Current Visit: Yes Status: Chronic Qualifiers: Hyperlipidemia type: unspecified Qualified Code(s): E78.5 - Hyperlipidemia, unspecified (3) Hypertension Current Visit: Yes Status: Chronic Qualifiers: Hypertension type: primary hypertension Qualified Code(s): I10 - Essential (primary) hypertension (4) Leukocytosis Current Visit: Yes Status: Acute - Plan Physical Exam General: Awake, confused. Neck: Supple, Without JVD. Respiratory: Clear to auscultation bilaterally, Normal air movement Cardiovascular: Regular rate/rhythm, Normal S1 S2 Gastrointestinal: Normal bowel sounds, No tenderness Musculoskeletal: No swelling Integumentary: No rashes Neurological: Normal strength at 5/5 x4 extr, unsteady gait. Plan: Patient currently on Risperdal 1 mg at bedtime. Continue to titrate Risperdal. Psychiatry input appreciated. Haldol as needed for agitation. mechanical soft diet. Monitor and optimize electrolytes. I had a discussion with Dr. Rodriguez who recommend repeat large-volume lumbar puncture. Spouse felt patient showed some improvement with previous LP. Repeat LP ordered. Patient with persistent leukocytosis but WBC is trending down. Blood culture has yielded no growth, UA is negative for UTI I am told patient was denied long-term care placement. Disposition: Home with home health or hospice.
[2021-12-02] MEDS ORDERED: POTASSIUM 25 MEQ EFFERV TAB PO ONE (16:00)
[2021-12-02] MEDS: LOVASTATIN 20 MG PO SCH (21:00)
[2021-12-02] MEDS: RISPERIDONE 1 MG TABLET PO SCH (21:36)
--- NOTE | 2021-12-03 01:19 | PN ---
Subjective: Mr. Al is resting in bed. He has a sitter at the bedside. He is talking tangentially and coughs intermittently. He did answer some questions appropriately. He did not report any new c omplaint. It should be noted that the staff and the patient's family noted worsening in his cognitiv e functioning including inability to transfer and maintain balance after he did well following his in itial high-volume lumbar puncture more than a week ago. Objective: Vital Signs: Blood pressure 120/76, pulse 80, respiratory rate 16, temperature 97.1, oxy gen saturation 99%. General: As noted, Mr. Al is in bed. His shirt is off. He is moving around trying to sit up in b ed and trying to get out of bed, but was able to be persuaded to remain in bed. Neuro: He does not appear to have a focal neurological deficit. Laboratory Studies: White blood cell count 13.1 with 75.6% neutrophils, hemoglobin and hematocrit ar e unremarkable. Basic metabolic panel is unremarkable. He did have an earlier lumbar puncture as no aubree that was done on the , showing glucose of 72, protein of 53, white blood cell count of 5, wbc s 20. VDRL was nonreactive. He does have a pending beta amyloid panel. Assessment: Mr. Al is a 66-year-old patient with likely normal pressure hydrocephalus who had init ially good response after high-volume lumbar puncture. He tends to now be back towards a baseline co gnitive impairment and inability to get up and ambulate well in addition to having difficulty with bl adder control. Plan: 1.Repeat high-volume lumbar puncture, around 35 cc of CSF should be removed. 2.Continue with physical therapy, cognitive therapy, and occupational therapy. 3.Start Diamox 250 mg twice daily. 4.Continue with Risperdal as needed. 5.Continue with hypertensive medication management as needed. LB/MODL Voice ID: [id number] Report ID: [id number]
[2021-12-03] MEDS: ENSURE ENLIVE 237 ML CAN PO SCH ×2 (08:38→21:00)
[2021-12-03] MEDS: SERTRALINE HCL 50 MG TAB PO SCH (08:38)
[2021-12-03] MEDS: AMLODIPINE 10 MG TAB PO SCH (08:38)
[2021-12-03 12:52] LABS: BETA A 42/40 RATIO 0.16
[2021-12-03] MEDS ORDERED: HALOPERIDOL LACT 5 MG/ML INJ IV ONE ×2 (13:00→20:21)
--- NOTE | 2021-12-03 14:03 | P.PN ---
Subjective Date of Service: 12/03/21 Primary Care Provider: Bacilio Chief Complaint: Normal pressure hydrocephalus Patient intermittently agitated today He was seen eating his meal by himself. Physical Examination - Vital Signs Temperature: 97.0 F Blood Pressure: 141/91 Pulse: 67 Respirations: 16 Pulse Ox (%): 98 Assessment And Plan - Current Problems (Diagnosis) (1) Dementia with behavioral disturbance Current Visit: Yes Status: Acute (2) Hyperlipidemia Current Visit: Yes Status: Chronic Qualifiers: Hyperlipidemia type: unspecified Qualified Code(s): E78.5 - Hyperlipidemia, unspecified (3) Hypertension Current Visit: Yes Status: Chronic Qualifiers: Hypertension type: primary hypertension Qualified Code(s): I10 - Essential (primary) hypertension (4) Leukocytosis Current Visit: Yes Status: Acute - Plan Physical Exam General: Awake, confused. Respiratory: Clear to auscultation bilaterally, Normal air movement Cardiovascular: Regular rate/rhythm, Normal S1 S2 Gastrointestinal: Normal bowel sounds, No tenderness Musculoskeletal: No swelling Integumentary: No rashes Neurological: Normal strength at 5/5 x4 extr, unsteady gait. Plan: Patient currently on Risperdal 1 mg at bedtime. Continue to titrate Risperdal. Psychiatry input appreciated. Haldol as needed for agitation. mechanical soft diet. I had a discussion with Dr. Rodriguez who recommend repeat large-volume lumbar puncture. Spouse felt patient showed some improvement with previous LP. Repeat LP ordered. I was contacted by the radiologist that he took about 2 hours to hold patient down for LP last time and reluctant to do another LP. This was discussed with Dr. Rodriguez who recommended Diamox for now. LP discontinued. I am told patient was denied long-term care placement. Spouse is open to home with hospice. Disposition: Home with home health or hospice.
[2021-12-03] MEDS: LOVASTATIN 20 MG PO SCH (19:52)
[2021-12-03] MEDS: RISPERIDONE 1 MG TABLET PO SCH (19:53)
[2021-12-03] MEDS: HALOPERIDOL LACT 5 MG/ML INJ ONE ×2 (20:32)
[2021-12-03] MEDS ORDERED: ZIPRASIDONE MESYLA 20 MG/VIAL IM ONE ×2 (21:41→21:57)
[2021-12-03] MEDS ORDERED: WATER FOR INJ,STERILE 10 ML IM PRN (21:41)
[2021-12-04] MEDS: ENSURE ENLIVE 237 ML CAN PO SCH ×2 (08:23→21:00)
[2021-12-04] MEDS: AMLODIPINE 10 MG TAB PO SCH (08:24)
[2021-12-04] MEDS: SERTRALINE HCL 50 MG TAB PO SCH (08:24)
[2021-12-04 13:38] LABS: Potassium 3.8 mmol/L (3.5-5.1)
[2021-12-04 13:54] LABS: Absolute Lymphocytes (CBC) 1.4 K/uL (0.7-4.9); Hematocrit 45.9 % (39.6-49.0); Lymphocytes % 9.3 % (15.3-44.8); MCV 84.4 fL (80-100); MPV 7.1 fL (7.6-11.3); RBC Red Blood Cell Count 5.43 M/uL (4.33-5.43)
--- NOTE | 2021-12-04 16:19 | P.PN ---
Subjective Date of Service: 12/04/21 Primary Care Provider: Bacilio Chief Complaint: Normal pressure hydrocephalus Patient intermittently agitated and aggressive. Physical Examination - Vital Signs Temperature: 98.0 F Blood Pressure: 135/84 Pulse: 117 Respirations: 16 Pulse Ox (%): 98 Assessment And Plan - Current Problems (Diagnosis) (1) Dementia with behavioral disturbance Current Visit: Yes Status: Acute (2) Hyperlipidemia Current Visit: Yes Status: Chronic Qualifiers: Hyperlipidemia type: unspecified Qualified Code(s): E78.5 - Hyperlipidemia, unspecified (3) Hypertension Current Visit: Yes Status: Chronic Qualifiers: Hypertension type: primary hypertension Qualified Code(s): I10 - Essential (primary) hypertension (4) Leukocytosis Current Visit: Yes Status: Acute - Plan Physical Exam General: Awake, confused. Respiratory: Clear to auscultation bilaterally, Normal air movement Cardiovascular: Regular rate/rhythm, Normal S1 S2 Gastrointestinal: Normal bowel sounds, No tenderness Musculoskeletal: No swelling Integumentary: No rashes Neurological: Normal strength at 5/5 x4 extr, unsteady gait. Plan: Case discussed with psychiatry-Dr. Toribio who recommended switching Risperdal to olanzapine twice a day. Patient placed on olanzapine 5 mg twice daily. Will titrate to control agitation. Continue sertraline Psychiatry input appreciated. Haldol as needed for agitation. He has been tolerating mechanical soft diet. Status post large-volume lumbar puncture. Spouse felt patient showed some improvement with previous LP. Repeat LP ordered. I was contacted by the radiologist who stated that it took about 2 hours to hold patient down for LP last time and a department is reluctant to do another LP. This was discussed with Dr. Rodriguez who recommended Diamox for now. Diamox to 50 mg twice daily. I am told patient was denied long-term care placement. Spouse is open to home with hospice. Patient may need inpatient hospice for control of agitation before discharge to home once he gets accepted to hospice. Discussed the overall plan of care with Dr. Toribio who agrees to inpatient hospice for agitation control prior to discharge.
[2021-12-04] MEDS: LOVASTATIN 20 MG PO SCH (20:04)
[2021-12-04] MEDS: acetaZOLAMIDE 250 MG TAB PO SCH (20:04)
[2021-12-04] MEDS: OLANZapine 2.5 MG TAB PO SCH (20:04)
[2021-12-05] MEDS: AMLODIPINE 10 MG TAB PO SCH (09:02)
[2021-12-05] MEDS: ENSURE ENLIVE 237 ML CAN PO SCH (09:03)
[2021-12-05] MEDS: acetaZOLAMIDE 250 MG TAB PO SCH (09:03)
[2021-12-05] MEDS: OLANZapine 2.5 MG TAB PO SCH (09:03)
[2021-12-05] MEDS: SERTRALINE HCL 50 MG TAB PO SCH (09:03)
[2021-12-05 09:51] VITALS: O2SAT 92
[2021-12-05 13:50] VITALS: BP 107/82; TEMP 97.5
--- NOTE | 2021-12-05 14:12 | P.PN ---
Subjective Date of Service: 12/05/21 Primary Care Provider: Bacilio Chief Complaint: Normal pressure hydrocephalus No major changes from yesterday. Intermittently agitated. No aggressive behavior today. No issues overnight Physical Examination - Vital Signs Temperature: 97.5 F Blood Pressure: 107/82 Pulse: 102 Respirations: 14 Pulse Ox (%): 98 Assessment And Plan - Current Problems (Diagnosis) (1) Dementia with behavioral disturbance Current Visit: Yes Status: Acute (2) Hyperlipidemia Current Visit: Yes Status: Chronic Qualifiers: Hyperlipidemia type: unspecified Qualified Code(s): E78.5 - Hyperlipidemia, unspecified (3) Hypertension Current Visit: Yes Status: Chronic Qualifiers: Hypertension type: primary hypertension Qualified Code(s): I10 - Essential (primary) hypertension (4) Leukocytosis Current Visit: Yes Status: Acute - Plan Physical Exam General: Awake, confused. Respiratory: Clear to auscultation bilaterally, Normal air movement Cardiovascular: Regular rate/rhythm, Normal S1 S2 Gastrointestinal: Normal bowel sounds, No tenderness Musculoskeletal: No swelling Integumentary: No rashes Neurological: Normal strength at 5/5 x4 extr, unsteady gait. Plan: Patient is tolerating olanzapine. Psychiatry input appreciated. Titrate to control agitation. Continue sertraline Haldol as needed for agitation. He has been tolerating mechanical soft diet. Status post large-volume lumbar puncture. Spouse felt patient showed some improvement with previous LP. Continue Diamox per neurology recommendation. Patient may need inpatient hospice for control of agitation before discharge to home once he gets accepted to hospice. Discussed the overall plan of care with Dr. Toribio who agrees to inpatient hospice for agitation control prior to discharge. [facility] is evaluating for inpatient hospice.
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
== END 2021-12-05 14:50 | disposition hospice, inpatient (51) | DRG 57 ==
LOC: ER 15:17 → ERHOLD 19:40 → 4TH 20:28 → OBSVTOIN 11-20 18:59
PROVIDERS: ADMIT Internal Medicine; ATTEND Internal Medicine
PROC: 009U3ZX Drainage of Spinal Canal, Percutaneous Approach, Diagnostic (ICD-10-PCS; principal; 2021-11-24)
DX: G30.9 Alzheimer's disease, unspecified (principal); F02.81 Dementia in other diseases classified elsewhere, unspecified severity, with behavioral disturbance; F05 Delirium due to known physiological condition; G91.2 (Idiopathic) normal pressure hydrocephalus; I10 Essential (primary) hypertension; E86.0 Dehydration; F32.9 Major depressive disorder, single episode, unspecified; E78.5 Hyperlipidemia, unspecified; D72.829 Elevated white blood cell count, unspecified; R13.10 Dysphagia, unspecified; Z66 Do not resuscitate; Z78.1 Physical restraint status; Z51.5 Encounter for palliative care; Z88.8 Allergy status to other drugs, medicaments and biological substances; Z91.14 Patient's other noncompliance with medication regimen; Z79.899 Other long term (current) drug therapy; Z87.891 Personal history of nicotine dependence; Z20.822 Contact with and (suspected) exposure to COVID-19
CPT/HCPCS: 36415; 62272; 70450; 71045; 77003; 80048; 81001; 82542; 82945; 83735; 84132; 84145; 84157; 85025; 85027; 86592; 87040; 87070; 87811; 89050; 92610; 93005; 95816; 97110; 97112; 97161; 97530; 99285; C9113; G0378; J1200; J1630; J2543; J3480; J3486; J7042

== ENCOUNTER 2021-12-05 16:02 | Inpatient (IN) | payer BC, OTHER ==
[2021-12-05] MEDS ORDERED: LORazepam 2 MG/ML VIAL IV PRN (16:38)
[2021-12-05] MEDS ORDERED: BISACODYL 10 MG RECTAL SUPP PR PRN (16:40)
[2021-12-05] MEDS ORDERED: ACETAMINOPHEN 650MG/RECT SUPP PR PRN (16:42)
[2021-12-05] MEDS: HALOPERIDOL LACT 5 MG/ML INJ IV SCH (17:09)
[2021-12-05] MEDS: LORazepam 2 MG/ML VIAL IV SCH (17:09)
[2021-12-05 17:58] VITALS: BMI 24.4
[2021-12-05] MEDS: acetaZOLAMIDE 250 MG TAB PO SCH (20:54)
[2021-12-05] MEDS: OLANZapine 2.5 MG TAB PO SCH (20:54)
[2021-12-06] MEDS: LORazepam 2 MG/ML VIAL IV SCH ×2 (01:00→09:16)
[2021-12-06] MEDS: HALOPERIDOL LACT 5 MG/ML INJ IV SCH ×3 (01:00→17:27)
[2021-12-06] MEDS: HALOPERIDOL LACT 5 MG/ML INJ IV PRN ×2 (05:21→19:04)
[2021-12-06] MEDS: SERTRALINE HCL 50 MG TAB PO SCH (09:00)
[2021-12-06] MEDS: OLANZapine 2.5 MG TAB PO SCH ×2 (09:00→21:00)
[2021-12-06] MEDS: acetaZOLAMIDE 250 MG TAB PO SCH ×2 (09:00→21:00)
[2021-12-06] MEDS ORDERED: LORazepam 2 MG/ML VIAL IV PRN (19:55)
[2021-12-07] MEDS: HALOPERIDOL LACT 5 MG/ML INJ IV SCH ×3 (00:20→16:28)
[2021-12-07] MEDS: LORazepam 2 MG/ML VIAL IV SCH ×3 (00:20→16:28)
[2021-12-07] MEDS: acetaZOLAMIDE 250 MG TAB PO SCH ×2 (08:07→20:01)
[2021-12-07] MEDS: OLANZapine 2.5 MG TAB PO SCH ×2 (08:08→20:01)
[2021-12-07] MEDS: SERTRALINE HCL 50 MG TAB PO SCH (08:08)
[2021-12-07] MEDS: MORPHINE 2 MG/ML SYR IV PRN ×2 (11:56→19:13)
[2021-12-08] MEDS: HALOPERIDOL LACT 5 MG/ML INJ IV SCH ×3 (01:34→16:03)
[2021-12-08] MEDS: LORazepam 2 MG/ML VIAL IV SCH ×3 (01:34→16:03)
[2021-12-08] MEDS: acetaZOLAMIDE 250 MG TAB PO SCH ×2 (08:21→20:53)
[2021-12-08] MEDS: SERTRALINE HCL 50 MG TAB PO SCH (08:21)
[2021-12-08] MEDS: OLANZapine 2.5 MG TAB PO SCH ×2 (08:21→20:53)
[2021-12-08] MEDS: MORPHINE 2 MG/ML SYR IV PRN ×2 (16:03→17:39)
[2021-12-09] MEDS: HALOPERIDOL LACT 5 MG/ML INJ IV SCH ×3 (00:24→16:23)
[2021-12-09] MEDS: LORazepam 2 MG/ML VIAL IV SCH ×3 (00:25→16:23)
[2021-12-09] MEDS: acetaZOLAMIDE 250 MG TAB PO SCH ×2 (07:47→20:10)
[2021-12-09] MEDS: SERTRALINE HCL 50 MG TAB PO SCH (07:47)
[2021-12-09] MEDS: OLANZapine 2.5 MG TAB PO SCH ×2 (07:47→20:10)
[2021-12-09] MEDS: MORPHINE 2 MG/ML SYR IV PRN ×2 (10:22→16:23)
[2021-12-10] MEDS: HALOPERIDOL LACT 5 MG/ML INJ IV SCH ×3 (00:57→16:33)
[2021-12-10] MEDS: LORazepam 2 MG/ML VIAL IV SCH ×3 (00:57→16:33)
[2021-12-10] MEDS: OLANZapine 2.5 MG TAB PO SCH ×2 (09:00→20:15)
[2021-12-10] MEDS: SERTRALINE HCL 50 MG TAB PO SCH (09:00)
[2021-12-10] MEDS: acetaZOLAMIDE 250 MG TAB PO SCH ×2 (09:00→20:15)
[2021-12-11] MEDS: LORazepam 2 MG/ML VIAL IV SCH ×3 (00:22→16:24)
[2021-12-11] MEDS: HALOPERIDOL LACT 5 MG/ML INJ IV SCH ×3 (00:22→16:24)
[2021-12-11] MEDS: SERTRALINE HCL 50 MG TAB PO SCH (09:00)
[2021-12-11] MEDS: OLANZapine 2.5 MG TAB PO SCH ×2 (09:00→21:00)
[2021-12-11] MEDS: acetaZOLAMIDE 250 MG TAB PO SCH ×2 (09:00→21:00)
[2021-12-11] MEDS: MORPHINE 2 MG/ML SYR IV PRN ×4 (10:56→21:55)
[2021-12-11] MEDS ORDERED: LORazepam 2 MG/ML VIAL IV SCH (23:00)
[2021-12-11] MEDS: MORPHINE 2 MG/ML SYR IV SCH (23:25)
[2021-12-12] MEDS: HALOPERIDOL LACT 5 MG/ML INJ IV SCH ×3 (00:17→16:56)
[2021-12-12] MEDS: LORazepam 2 MG/ML VIAL IV SCH ×3 (00:17→16:56)
[2021-12-12] MEDS: MORPHINE 2 MG/ML SYR IV SCH ×7 (01:45→20:43)
[2021-12-12] MEDS: SERTRALINE HCL 50 MG TAB PO SCH (08:02)
[2021-12-12] MEDS: acetaZOLAMIDE 250 MG TAB PO SCH ×2 (08:02→20:46)
[2021-12-12] MEDS: OLANZapine 2.5 MG TAB PO SCH ×2 (08:02→20:46)
[2021-12-12 23:51] VITALS: O2SAT 95
[2021-12-13] MEDS: MORPHINE 2 MG/ML SYR IV SCH ×9 (00:08→22:36)
[2021-12-13] MEDS: HALOPERIDOL LACT 5 MG/ML INJ IV SCH ×3 (01:48→17:08)
[2021-12-13] MEDS: LORazepam 2 MG/ML VIAL IV SCH ×3 (01:49→17:08)
[2021-12-13] MEDS: acetaZOLAMIDE 250 MG TAB PO SCH ×2 (09:00→20:38)
[2021-12-13] MEDS: OLANZapine 2.5 MG TAB PO SCH ×2 (09:00→20:38)
[2021-12-13] MEDS: SERTRALINE HCL 50 MG TAB PO SCH (09:00)
[2021-12-13] MEDS: POLYVINYL ALCOHOL 1.4% 15 ML EACH EYE PRN (17:18)
[2021-12-14] MEDS: LORazepam 2 MG/ML VIAL IV SCH ×3 (01:03→17:35)
[2021-12-14] MEDS: HALOPERIDOL LACT 5 MG/ML INJ IV SCH ×3 (01:04→17:34)
[2021-12-14] MEDS: MORPHINE 2 MG/ML SYR IV SCH ×8 (02:44→23:03)
[2021-12-14] MEDS: acetaZOLAMIDE 250 MG TAB PO SCH ×2 (08:51→20:44)
[2021-12-14] MEDS: OLANZapine 2.5 MG TAB PO SCH ×2 (08:52→20:44)
[2021-12-14] MEDS: SERTRALINE HCL 50 MG TAB PO SCH (08:52)
[2021-12-14] MEDS: HALOPERIDOL LACT 5 MG/ML INJ IV PRN (21:40)
[2021-12-14] MEDS: LORazepam 2 MG/ML VIAL IV PRN (21:40)
[2021-12-15] MEDS: LORazepam 2 MG/ML VIAL IV SCH ×3 (00:17→17:00)
[2021-12-15] MEDS: HALOPERIDOL LACT 5 MG/ML INJ IV SCH ×3 (00:19→17:00)
[2021-12-15] MEDS: MORPHINE 2 MG/ML SYR IV SCH ×7 (02:11→20:00)
[2021-12-15] MEDS: POLYVINYL ALCOHOL 1.4% 15 ML EACH EYE PRN (08:17)
[2021-12-15] MEDS: SERTRALINE HCL 50 MG TAB PO SCH (08:19)
[2021-12-15] MEDS: OLANZapine 2.5 MG TAB PO SCH ×2 (08:19→20:46)
[2021-12-15] MEDS: acetaZOLAMIDE 250 MG TAB PO SCH ×2 (08:37→20:45)
[2021-12-15] MEDS: HALOPERIDOL LACT 5 MG/ML INJ IV PRN (14:50)
[2021-12-15] MEDS: LORazepam 2 MG/ML VIAL IV PRN (14:50)
[2021-12-15] MEDS: MORPHINE 4 MG/ML SYR IV SCH (20:44)
[2021-12-16] MEDS: MORPHINE 4 MG/ML SYR IV SCH ×7 (00:27→17:22)
[2021-12-16] MEDS: LORazepam 2 MG/ML VIAL IV SCH ×3 (01:54→17:22)
[2021-12-16] MEDS: HALOPERIDOL LACT 5 MG/ML INJ IV SCH ×3 (01:54→17:21)
[2021-12-16] MEDS: acetaZOLAMIDE 250 MG TAB PO SCH (09:00)
[2021-12-16] MEDS: SERTRALINE HCL 50 MG TAB PO SCH (09:00)
[2021-12-16] MEDS: OLANZapine 2.5 MG TAB PO SCH (09:00)
[2021-12-16 09:10] VITALS: BP 109/73; TEMP 98.1
== END 2021-12-16 19:20 | disposition expired | DRG 951 ==
LOC: 4TH 16:02
PROVIDERS: ADMIT Internal Medicine Hematology & Oncology; ATTEND Internal Medicine Hematology & Oncology
DX: Z51.5 Encounter for palliative care (principal)
CPT/HCPCS: J1630; J2270